=== PATIENT | female | born 1960 | race Caucasian/White ===

== ENCOUNTER 2018-10-01 13:30 | Emergency (ER) | payer MEDICARE, MEDICAID ==
[2018-10-01] MEDS ORDERED: Sodium Chloride 0.9% 1,000 ML IV ONE (13:48)
[2018-10-01 14:30] LABS: % BASOPHILS 0.7 % (0.0-2.0); % EOSINOPHILS 3.4 % (0.0-5.0); % LYMPHOCYTES 12.8 % (20.0-50.0); % MONOCYTES 6.6 % (2.0-10.0); % NEUTROPHILS 76.5 % (40.0-80.0); BASOPHILE ABSOLUTE 0.1 Th/cumm (0-0.2); EOSINOPHILE ABSOLUTE 0.3 Th/cmm (0.1-0.4); HEMATOCRIT 42.3 % (41.0-60); HEMOGLOBIN 13.7 gm/dL (12-16); LYMPHOCYTE ABSOLUTE 1.3 Th/cmm (1.5-3.0); MEAN CELL VOLUME 88.1 fl (81-100); MEAN CORPUSCULAR HEMOGLOBIN 28.6 pg (27.0-31.0); MEAN CORPUSCULAR HGB CONC 32.5 pg (28.0-36.0); MEAN PLATELET VOLUME 10.6 fl; MONOCYTE ABSOLUTE 0.7 Th/cmm (0.3-1.0); NEUTROPHILE ABSOLUTE 7.5 Th/cmm (1.8-8.0); PLATELET COUNT 177 Th/cmm (150-400); RED CELL DISTRIBUTION WIDTH 12.1 % (11.5-20.0); WHITE BLOOD COUNT 9.9 Th/cmm (4.8-10.8)
[2018-10-01 14:45] LABS: INR 0.96 (0.5-1.4)
[2018-10-01 14:58] LABS: ALB/GLOB RATIO 1.2 (1.0-1.8); ANION GAP 14.5 (7.0-16.0); BILIRUBIN,TOTAL 0.3 mg/dL (0.3-1.0); CALCIUM SERUM 9.7 mg/dL (8.6-10.3); CARBON DIOXIDE 26.3 mEq/L (21.0-31.0); CREATININE - SERUM 1.3 mg/dL (0.6-1.2); GFR AFRICAN-AMERICAN 53.7 ml/min (>90); GFR NON AFRICAN-AMERICAN 44.4 ml/min; POTASSIUM SERUM 3.8 mEq/L (3.5-5.1); TOTAL PROTEIN,SERUM 7.4 gm/dL (6.0-8.3)
--- NOTE | 2018-10-01 15:50 | ED Physician Chart ---
ED Chief Complaint/HPI - Patient Information Date Seen:: 10/01/18 Time Seen:: 13:30 Chief Complaint:: Back Pain History of Present Illness:: onset x 3 days of back pain; no report of trauma, H/As, S/T, neck pain, C/P, cough, SOB, Abd. Pain, A/N/V/D/C, fever, chills, or urinary s/s Allergies:: Allergies Allergy/AdvReac Type Severity Reaction Status Date / Time cephalexin Allergy Verified 10/01/18 14:56 Penicillins [PCN] Allergy Verified 10/01/18 14:56 sulfamethoxazole Allergy Verified 10/01/18 14:57 trimethoprim [From Bactrim] Allergy Verified 10/01/18 14:57 Vitals:: Vital Signs - 8 hr 10/01/18 10/01/18 13:32 14:54 Temp 98 F HR 68 65 RR 18 18 BP 119/69 110/43 O2 Sat % 96 95 Historian:: Patient, EMS Review:: Nurse's Note Reviewed, Old Chart Reviewed, EMS run form Reviewed <Julien Raymond - Last Filed: 10/01/18 17:29> - Patient Information Allergies:: Allergies Allergy/AdvReac Type Severity Reaction Status Date / Time cephalexin Allergy Verified 10/01/18 14:56 Penicillins [PCN] Allergy Verified 10/01/18 14:56 sulfamethoxazole Allergy Verified 10/01/18 14:57 trimethoprim [From Bactrim] Allergy Verified 10/01/18 14:57 Vitals:: Vital Signs - 8 hr 10/01/18 10/01/18 10/01/18 13:32 14:54 17:23 Temp 98 F HR 68 65 74 RR 18 18 18 BP 119/69 110/43 114/35 O2 Sat % 96 95 94 <Betty Horowitz - Last Filed: 10/01/18 19:25> ED Review of Systems - Review of Systems General/Constitutional: No fever, No chills, No weight loss, No weakness, No diaphoresis, No edema, No loss of appetite Skin: No skin lesions, No rash, No bruising Head: No headache, No light-headedness Eyes: No loss of vision, No pain, No diplopia ENT: No earache, No nasal drainage, No sore throat, No tinnitus Neck: No neck pain, No swelling, No thyromegaly, No stiffness, No mass noted Cardio Vascular: No chest pain, No palpitations, No PND, No orthopnea, No edema Pulmonary: No SOB, No cough, No sputum, No wheezing GI: No nausea, No vomiting, No diarrhea, No pain, No melena, No hematochezia, No constipation, No hematemesis G/U: No dysuria, No frequency, No hematuria, No nacturia [employer]: No vaginal discharge, No abnormal vaginal bleed, No contraction Musculoskeletal: No bone or joint pain, Back pain, No muscle pain Endocrine: No polyuria, No polydipsia Psychiatric: No prior psych history, No depression, No anxiety, No suicidal ideation, No homicidal ideation, No auditory hallucination, No visual hallucination Hematopoietic: No bruising, No lymphadenopathy Allergic/Immuno: No urticaria, No angioedema Neurological: No syncope, No focal symptoms, No weakness, No paresthesia, No headache, No seizure, No dizziness, No confusion, No vertigo <Julien Raymond - Last Filed: 10/01/18 17:29> ED Past Medical History - Past Medical History Obtainable: Yes Past Medical History: HTN, DM, CAD, Dyslipidemia Family History: Diabetes Melitus, HTN Social History: Non Smoker, No Alcohol, No Drug Use, , Care Facility Surgical History: None Psychiatricy History: None Medication: Reviewed <Julien Raymond - Last Filed: 10/01/18 17:29> ED Physical Exam - Physical Examination General/Constitutional: Awake, Well-developed, well-nourished, Alert, No distress, GCS 15, Non-toxic appearing, Ambulatory Head: Atraumatic Eyes: Lids, conjuctiva normal, PERRL, EOMI Skin: Nl inspection, No rash, No skin lesions, No ecchymosis, Well hydrated, No lymphadenopathy ENMT: External ears, nose nl, TM canals nl, Nasal exam nl, Lips, teeth, gums nl , Oropharynx nl, Tonsils nl Neck: Nontender, Full ROM w/o pain, No JVD, No nuchal rigidity, No bruit, No mass, No stridor Respiratory: Nl effort/Exclusion, Clear to Auscultation, No Wheeze/Rhonchi/Rales Cardio Vascular: RRR, No murmur, gallop, rubs, NL S1 S2, Carotid/Femoral/Distal pulses equal bilaterally GI: No tenderness/rebounding/guarding, No organomegaly, No hernia, Normal BS's, Nondistended, No mass/bruits, No McBurney tenderness : No CVA tenderness Extremities: No tenderness or effusion, Full ROM, normal strength in all extremities, No edema, Normal digits & nails Neuro/Psych: Alert/oriented, DTR's symmetric, Normal sensory exam, Normal motor strength, Judgement/insight normal, Mood normal, Normal gait, No focal deficits Misc: Normal back, No paraspinal tenderness <Julien Raymond - Last Filed: 10/01/18 17:29> ED Labs/Radiology/EKG Results - Lab Results Results: Laboratory Tests 10/01/18 10/01/18 10/01/18 14:05 14:20 14:20 WBC 9.9 RBC 4.80 Hgb 13.7 Hct 42.3 MCV 88.1 MCH 28.6 MCHC Differential 32.5 RDW 12.1 Plt Count 177 MPV 10.6 Neutrophils % 76.5 Lymphocytes % 12.8 L Monocytes % 6.6 Eosinophils % 3.4 Basophils % 0.7 PT INR PTT (Actin FS) Sodium 139 Potassium 3.8 Chloride 102 Carbon Dioxide 26.3 Anion Gap 14.5 BUN 33 H Creatinine 1.3 H Est GFR ( Amer) 53.7 Est GFR (Non-Af Amer) 44.4 BUN/Creatinine Ratio 25.4 Glucose 97 Whole Bld Lactic Acid Calcium 9.7 Total Bilirubin 0.3 AST 19 ALT 14 Alkaline Phosphatase 103 Troponin I Total Protein 7.4 Albumin 4.0 Globulin 3.4 Albumin/Globulin Ratio 1.2 Amylase 54 Lipase 20 Serum , Qual NEGATIVE 10/01/18 10/01/18 10/01/18 14:20 14:20 14:20 WBC RBC Hgb Hct MCV MCH MCHC Differential RDW Plt Count MPV Neutrophils % Lymphocytes % Monocytes % Eosinophils % Basophils % PT 10.0 INR 0.96 PTT (Actin FS) 23.6 L Sodium Potassium Chloride Carbon Dioxide Anion Gap BUN Creatinine Est GFR ( Amer) Est GFR (Non-Af Amer) BUN/Creatinine Ratio Glucose Whole Bld Lactic Acid 0.85 Calcium Total Bilirubin AST ALT Alkaline Phosphatase Troponin I < 0.01 L Total Protein Albumin Globulin Albumin/Globulin Ratio Amylase Lipase Serum , Qual Comments:: Reviewed - Radiology Results Comments:: NAD - EKG Interpretations EKG Time:: 14:27 Rate & Rhythm: 60; NSR Comments:: T-Wave Inversions; non-specific st-t changes <Julien Raymond - Last Filed: 10/01/18 17:29> - Lab Results Results: Laboratory Tests 10/01/18 10/01/18 10/01/18 14:05 14:20 14:20 WBC 9.9 RBC 4.80 Hgb 13.7 Hct 42.3 MCV 88.1 MCH 28.6 MCHC Differential 32.5 RDW 12.1 Plt Count 177 MPV 10.6 Neutrophils % 76.5 Lymphocytes % 12.8 L Monocytes % 6.6 Eosinophils % 3.4 Basophils % 0.7 PT INR PTT (Actin FS) Sodium 139 Potassium 3.8 Chloride 102 Carbon Dioxide 26.3 Anion Gap 14.5 BUN 33 H Creatinine 1.3 H Est GFR ( Amer) 53.7 Est GFR (Non-Af Amer) 44.4 BUN/Creatinine Ratio 25.4 Glucose 97 Whole Bld Lactic Acid Calcium 9.7 Total Bilirubin 0.3 AST 19 ALT 14 Alkaline Phosphatase 103 Troponin I Total Protein 7.4 Albumin 4.0 Globulin 3.4 Albumin/Globulin Ratio 1.2 Amylase 54 Lipase 20 Serum , Qual NEGATIVE 10/01/18 10/01/18 10/01/18 14:20 14:20 14:20 WBC RBC Hgb Hct MCV MCH MCHC Differential RDW Plt Count MPV Neutrophils % Lymphocytes % Monocytes % Eosinophils % Basophils % PT 10.0 INR 0.96 PTT (Actin FS) 23.6 L Sodium Potassium Chloride Carbon Dioxide Anion Gap BUN Creatinine Est GFR ( Amer) Est GFR (Non-Af Amer) BUN/Creatinine Ratio Glucose Whole Bld Lactic Acid 0.85 Calcium Total Bilirubin AST ALT Alkaline Phosphatase Troponin I < 0.01 L Total Protein Albumin Globulin Albumin/Globulin Ratio Amylase Lipase Serum , Qual <Betty Horowitz - Last Filed: 10/01/18 19:25> ED Septic Shock - <6hrs of presentation: Vital Signs: Vital Signs - 8 hr 10/01/18 10/01/18 13:32 14:54 Temp 98 F HR 68 65 RR 18 18 BP 119/69 110/43 O2 Sat % 96 95 <Julien Raymond - Last Filed: 10/01/18 17:29> - . Is Septic Shock (SBP<90, OR Lactate>4 mmol\L) present?: No - <6hrs of presentation: Vital Signs: Vital Signs - 8 hr 10/01/18 10/01/18 10/01/18 13:32 14:54 17:23 Temp 98 F HR 68 65 74 RR 18 18 18 BP 119/69 110/43 114/35 O2 Sat % 96 95 94 <Betty Horowitz - Last Filed: 10/01/18 19:25> ED Reassessment (Disposition) - Reassessment Reassessment Condition:: Improved - Diagnosis Diagnosis:: Dehydration; Pre-Renal Azotemia; Back pain <Julien Raymond - Last Filed: 10/01/18 17:29> - Reassessment Reassessment:: pt has hgb of 8.6 and hct [address] BRODY AND HE APPROVED ADMISSIOM PT SLEEPING MOANING AND GROANING - Patient Disposition Discharge/Transfer:: Acute Care w/in this hosp Admitted to:: Telemetry Condition at Disposition:: Stable <Betty Horowitz - Last Filed: 10/01/18 19:25>
[2018-10-01 18:58] LABS: URINE SOURCE CLEAN C
[2018-10-01 19:01] LABS: URINE BILIRUBIN NEGATIVE (NEGATIVE); URINE BLOOD NEGATIVE (NEGATIVE); URINE GLUCOSE (UA) NEGATIVE (NEGATIVE); URINE KETONE NEGATIVE (NEGATIVE); URINE LEUKOCYTE ESTERASE SMALL (NEGATIVE); URINE NITRATE NEGATIVE (NEGATIVE); URINE PH 5.5 (4.6 - 8.0); URINE PROTEIN NEGATIVE (NEGATIVE); URINE UROBILINOGEN 0.2 E.U./dL (0.2 - 1.0)
[2018-10-01 19:46] LABS: URINE CLARITY CLEAR (CLEAR); URINE COLOR YELLOW; URINE MICROSCOPIC INDICATED? YES
[2018-10-01 19:55] LABS: URINE EPITHELIAL CELLS MODERATE /lpf (FEW); URINE RBC 0-2 /hpf (0-5)
[2018-10-01 19:56] LABS: URINE BACTERIA 2+ /hpf (NONE SEEN)
--- NOTE | 2018-10-02 08:35 | Diagnostic Imaging Report ---
Exam: CT examination abdomen pelvis. HISTORY: Abdominal pain Total DLP equals 954 CTDI equals 20.3 Findings: Multiple contiguous thin section of the abdomen pelvis obtained from lower thorax to pubic symphysis without administration of oral or intravenous contrast material. No prior studies available comparison. The study demonstrates normal aeration of lung parenchyma the bases. Mild left basilar atelectasis is noted. The liver is intact. There is evidence of splenomegaly. The kidneys demonstrate no evidence of obstructive uropathy or nephrolithiasis. There is evidence of prior cholecystectomy. Pancreas poorly seen. There is evidence for large amount of fecal content throughout the colon. There is no evidence of diverticular disease of diverticulitis. Fibroid uterus is appreciated. Ultrasound exam of of pelvis is recommended. Urinary bladder is intact. Bony structures demonstrate no evidence for lytic or blastic changes. IMPRESSION: Basilar atelectasis Status post cholecystectomy Atrophic pancreas Large amount of fecal content. Uterine mass measuring 6 cm diameter, most likely represents fibroid mass, ultrasound examination recommended.
== END 2018-10-01 21:14 ==
LOC: ER 13:30
DX: E86.0 Dehydration (principal); M54.9 Dorsalgia, unspecified; I10 Essential (primary) hypertension; E11.9 Type 2 diabetes mellitus without complications; I25.10 Atherosclerotic heart disease of native coronary artery without angina pectoris; E78.5 Hyperlipidemia, unspecified; Z88.0 Allergy status to penicillin; Z88.1 Allergy status to other antibiotic agents; Z88.2 Allergy status to sulfonamides
CPT/HCPCS: 99284; 96374; 93005; 74176; 84484; 36415; 83605; 85025; 85610; 85730; 87086; 81001; 82150; 84703; 81025; 83690; 80053; 87081; 87040 ×2; J2405; J7030; Z7502

== ENCOUNTER 2019-02-09 20:04 | Inpatient (IN) | payer MEDICARE, MEDICAID ==
--- NOTE | 2019-02-09 20:19 | ED Physician Chart ---
ED Chief Complaint/HPI - Patient Information Date Seen:: 02/09/19 Time Seen:: 20:14 Chief Complaint:: depression History of Present Illness:: this is a 58 yo female residential patient sent to this er for evaluation and treatment of obesity and depression. she hypertensive with diabetes mellitus, cad and lipids problem. Allergies:: Allergies Allergy/AdvReac Type Severity Reaction Status Date / Time cephalexin Allergy Verified 10/01/18 14:56 Penicillins [PCN] Allergy Verified 10/01/18 14:56 sulfamethoxazole Allergy Verified 10/01/18 14:57 trimethoprim [From Bactrim] Allergy Verified 10/01/18 14:57 Historian:: Medical Records Review:: Nurse's Note Reviewed, Old Chart Reviewed, Transfer documents Reviewed ED Review of Systems - Review of Systems General/Constitutional: No fever, No chills, No weight loss, No weakness, No diaphoresis, No edema, No loss of appetite, Other (obesity) Skin: No skin lesions, No rash, No bruising Head: No headache, No light-headedness Eyes: No loss of vision, No pain, No diplopia ENT: No earache, No nasal drainage, No sore throat, No tinnitus Neck: No neck pain, No swelling, No thyromegaly, No stiffness, No mass noted Cardio Vascular: No chest pain, No palpitations, No PND, No orthopnea, No edema Pulmonary: No SOB, No cough, No sputum, No wheezing GI: No nausea, No vomiting, No diarrhea, No pain, No melena, No hematochezia, No constipation, No hematemesis G/U: No dysuria, No frequency, No hematuria Musculoskeletal: No bone or joint pain, No back pain, No muscle pain Endocrine: No polyuria, No polydipsia Psychiatric: No prior psych history, Depression, No anxiety, No suicidal ideation Hematopoietic: No bruising, No lymphadenopathy Allergic/Immuno: No urticaria, No angioedema Neurological: No syncope, No focal symptoms, No weakness, No paresthesia, No headache, No seizure, No dizziness, No confusion, No vertigo ED Past Medical History - Past Medical History Obtainable: Yes Past Medical History: HTN, DM, CAD, Dyslipidemia, Dementia Family History: None Social History: Non Smoker, No Alcohol, No Drug Use, Care Facility Surgical History: other (right leg bka, tonsilecteomy, gallbladder removed, right breast lump removed.) Psychiatricy History: Depression Medication: Reviewed Family Medical History - Family Member Mother History Unknown: Yes ED Physical Exam - Physical Examination General/Constitutional: Awake, Well-developed, well-nourished, Alert, No distress, GCS 15, Non-toxic appearing, Ambulatory Other Gen/Cons comments:: obese Head: Atraumatic Eyes: Lids, conjuctiva normal, PERRL, EOMI Skin: Nl inspection, No rash, No skin lesions, No ecchymosis, Well hydrated, No lymphadenopathy ENMT: External ears, nose nl, Nasal exam nl, Lips, teeth, gums nl Neck: Nontender, Full ROM w/o pain, No JVD, No nuchal rigidity, No bruit, No mass, No stridor Respiratory: Nl effort/Exclusion, Clear to Auscultation, No Wheeze/Rhonchi/Rales Cardio Vascular: RRR, No murmur, gallop, rubs, NL S1 S2 GI: No tenderness/rebounding/guarding, No organomegaly, No hernia, Normal BS's, Nondistended, No mass/bruits, No McBurney tenderness : No CVA tenderness Extremities: No tenderness or effusion, Full ROM, normal strength in all extremities, No edema, Normal digits & nails Other Extremities comments:: the right lower extremity there is a bka that is well healed. Neuro/Psych: Alert/oriented, DTR's symmetric, Normal sensory exam, Normal motor strength, Judgement/insight normal, Mood normal (depressed), Normal gait, No focal deficits Misc: Normal back, No paraspinal tenderness ED Labs/Radiology/EKG Results - Lab Results Results: Abnormal Lab Results 02/09/19 02/09/19 20:30 20:30 WBC 8.3 RBC 4.57 Hgb 13.5 Hct 41.2 MCV 90.1 MCH 29.6 MCHC Differential 32.8 RDW 12.7 Plt Count 208 MPV 10.4 Neutrophils % 76.9 Lymphocytes % 16.1 L Monocytes % 2.5 Eosinophils % 4.5 Basophils % 0.0 Sodium 137 Potassium 3.8 Chloride 100 Carbon Dioxide 27.8 Anion Gap 13.0 BUN 40 H Creatinine 1.3 H Est GFR ( Amer) 53.7 Est GFR (Non-Af Amer) 44.4 BUN/Creatinine Ratio 30.8 Glucose 170 H Calcium 9.1 Total Bilirubin 0.3 AST 12 L ALT 12 Alkaline Phosphatase 85 Total Protein 6.8 Albumin 3.9 Globulin 2.9 Albumin/Globulin Ratio 1.3 - Radiology Results Results: chest x-ray = nad with cm - EKG Interpretations EKG Time:: 20:18 Rate & Rhythm: rate = 72, sinus [place]: left axis ED Assessment - Assessment General Assessment: depressed ED Septic Shock - . Is Septic Shock (SBP<90, OR Lactate>4 mmol\L) present?: No ED Reassessment (Disposition) - Diagnosis Diagnosis:: depression - Patient Disposition Discharge/Transfer:: Acute Care w/in this hosp Admitting Medical Physician:: Ravi Samson Admitting Psych Physician:: Shaheed Cox Condition at Disposition:: Unchanged
[2019-02-09 20:38] LABS: % EOSINOPHILS 4.5 % (0.0-5.0); % LYMPHOCYTES 16.1 % (20.0-50.0); % MONOCYTES 2.5 % (2.0-10.0); % NEUTROPHILS 76.9 % (40.0-80.0); EOSINOPHILE ABSOLUTE 0.4 Th/cmm (0.1-0.4); HEMATOCRIT 41.2 % (41.0-60); HEMOGLOBIN 13.5 gm/dL (12-16); LYMPHOCYTE ABSOLUTE 1.3 Th/cmm (1.5-3.0); MEAN CELL VOLUME 90.1 fl (81-100); MEAN CORPUSCULAR HEMOGLOBIN 29.6 pg (27.0-31.0); MEAN CORPUSCULAR HGB CONC 32.8 pg (28.0-36.0); MONOCYTE ABSOLUTE 0.2 Th/cmm (0.3-1.0); NEUTROPHILE ABSOLUTE 6.4 Th/cmm (1.8-8.0); PLATELET COUNT 208 Th/cmm (150-400); RED BLOOD COUNT 4.57 Mil/cmm (3.80-5.10); RED CELL DISTRIBUTION WIDTH 12.7 % (11.5-20.0); WHITE BLOOD COUNT 8.3 Th/cmm (4.8-10.8)
[2019-02-09 20:55] LABS: ALB/GLOB RATIO 1.3 (1.0-1.8); ALBUMIN 3.9 gm/dL (3.7-5.3); BILIRUBIN,TOTAL 0.3 mg/dL (0.3-1.0); CALCIUM SERUM 9.1 mg/dL (8.6-10.3); CARBON DIOXIDE 27.8 mEq/L (21.0-31.0); CREATININE - SERUM 1.3 mg/dL (0.6-1.2); GFR AFRICAN-AMERICAN 53.7 ml/min (>90); GFR NON AFRICAN-AMERICAN 44.4 ml/min; POTASSIUM SERUM 3.8 mEq/L (3.5-5.1); TOTAL PROTEIN,SERUM 6.8 gm/dL (6.0-8.3)
[2019-02-10 01:21] VITALS: BP 117/65
[2019-02-10] MEDS: INSULIN 70/30 100 UNITS/ML SUBQ SCH ×2 (09:01→21:16)
[2019-02-10] MEDS: Polyvinyl Alcohol Ophth Soln 15 mL Bottle EACH EYE SCH ×3 (10:39→20:57)
[2019-02-10] MEDS: Potassium Chloride 10 mEq ER Tab PO SCH (10:39)
[2019-02-10] MEDS ORDERED: Magnesium Hydroxide (MOM) 30 mL UDC PO PRN (12:15)
[2019-02-10] MEDS: INSULIN LISPRO SLIDING SCALE 100 UNITS/ML UNIT SUBQ SCH ×3 (12:51→20:39)
--- NOTE | 2019-02-10 13:04 | History & Physical ---
ADMIT DATE: 02/10/2019 CHIEF COMPLAINT: Medical evaluation and clearance. HISTORY OF PRESENT ILLNESS: This is a 58-year-old female with history of morbid obesity, renal insufficiency, diabetes, hypertension, peripheral neuropathy, right below-knee amputation, overactive bladder, admitted from nursing facility under the service of Dr. Cox. The patient denies any pain at this time. Denies chest pain, shortness of breath. PAST MEDICAL HISTORY: As mentioned in the history of present illness. PAST SURGICAL HISTORY: Status post gallbladder surgery, right below-knee amputation, right breast lumpectomy, T and A. ALLERGIES: KEFLEX, PENICILLIN, BACTRIM. MEDICATIONS: The patient is on Lantus 70/30 insulin, Zoloft, aspirin, artificial tears, Colace, gabapentin, gemfibrozil, [place], Atarax, insulin sliding scale, Tradjenta, Ativan, Amitiza, potassium ____ and Topamax. FAMILY HISTORY: Noncontributory. SOCIAL HISTORY: The patient is a senior living patient requiring 24-hour total care. Nonsmoker and nondrinker. Unmarried. REVIEW OF SYSTEMS: GENERAL: Complains not feeling well. HEENT: The patient has blurred vision ____. LUNGS: No diagnosis of COPD or asthma. HEART: The patient with hypertension, high cholesterol. ABDOMEN: No nausea, vomiting or pain. GENITOURINARY: The patient denies increased frequency or dysuria. NEUROLOGIC: History of peripheral neuropathy. PSYCHIATRIC: Stable. PHYSICAL EXAMINATION: VITAL SIGNS: Blood pressure 117/64, respirations 18, pulse 71, temperature 98.2. GENERAL: Elderly female, morbidly obese. NECK: Supple, no mass. LUNGS: Equal breath sounds with a few rhonchi. HEART: Regular rate and rhythm without appreciable murmur. ABDOMEN: Soft, globular. EXTREMITIES: Positive excoriation, right below-knee amputation. NEUROLOGIC: Limited. LABORATORY DATA: WBC 8, hemoglobin 13, platelets 208. Sodium 137, potassium 3.8, BUN 40, creatinine 1.3, blood sugar 177. Albumin 3.9. ASSESSMENT AND PLAN: Morbid obesity, renal insufficiency, diabetes, hypertension, hypercholesterolemia, peripheral neuropathy, overactive bladder, right below-knee amputation, history of IBS. Continue the patient on ADA diet and insulin sliding scale. Monitor for any signs of fluid overload. Continue with adequate skin care. We will review the patient's medication. We will make some adjustment. We will continue monitoring the patient closely. [facility]# [id number]
--- NOTE | 2019-02-10 14:07 | Diagnostic Imaging Report ---
Portable chest x-ray HISTORY: Cough Heart size difficult to assess with portable technique taken a very poor inspiration. The heart size appears somewhat generous. No focal pulmonary processes. No hilar or mediastinal abnormalities. IMPRESSION: 1. No acute pulmonary processes 2. Question generous heart size
[2019-02-10] MEDS: Hydrocodone/APAP 5mg/325mg Tab PO PRN (15:40)
[2019-02-10] MEDS: Magnesium Chloride EC 64mg Tab PO SCH (17:59)
--- NOTE | 2019-02-11 03:52 | Psychiatric Evaluation ---
DATE OF SERVICE: 02/09/2019 IDENTIFYING DATA: The patient is a 58-year-old woman, resident of [facility]. Information obtained by directly interviewing the patient as well as reviewing the admission papers. JUSTIFICATION OF HOSPITALIZATION: The patient is admitted here for acute depression. CHIEF COMPLAINT: "I have been feeling depressed since my sister in November." HISTORY OF PRESENT ILLNESS: This is the first psychiatric hospitalization to [facility] for this patient, who is reported to have been feeling depressed since her sister got sick in July. The patient is stating that her sister got better and came to visit her in August, but in November, sister herself got really bad and she from thereon the patient is stating that she has been feeling acutely depressed. She states that her sister was the one that visits her and has been able to provide some comfort. The patient is reporting that she does not have any support now. The patient is blaming herself. The patient's sleep is noted to be poor. Appetite is noted to be fair ____ hospitalization, the patient has been noted to be on Zoloft and gabapentin. PAST PSYCHIATRIC HISTORY: Please refer to the above. MEDICAL HISTORY: Physical examination is requested to be done by Dr. Samson. The patient has been noted to have morbid obesity, diabetes mellitus 2, hypertension, right below-knee amputation, neuropathy, GERD, overactive bladder, hypercholesterolemia, and chronic kidney disease. The patient is reported TO BE ALLERGIC TO BACTRIM AND KEFLEX, PENICILLIN AND SULFA. SOCIAL HISTORY: The patient is a resident of [facility] in [place]. LEGAL PROBLEMS: None at this time. SUBSTANCE ABUSE HISTORY: None. STRENGTH AND ASSETS: The patient is motivated. MENTAL STATUS EXAMINATION: The patient is a 58-year-old, looking her stated age, superficially cooperative. Eye contact is poor. Mood is noted to be depressed. Coping skills are noted to be very poor. Insight and judgment are noted to be limited. The patient is not presenting with any suicidal ideation. No homicidal ideation is noted. Coping skills are noted to be extremely poor. The patient has been having difficult time to cope with the stress. The patient denies any auditory hallucinations, no delusions are noted. The patient is alert and oriented to time, place, person, and situation. DIAGNOSTIC IMPRESSION: AXIS I: Major depressive disorder, first episode and severe. AXIS II: None. AXIS III: As per Dr. Samson. IMMEDIATE TREATMENT PLAN: The patient is going to be observed on inpatient unit, provided with supportive psychotherapy. The patient is going to be restarted with the Zoloft, which is going to be gradually increased. ESTIMATED LENGTH OF STAY: 5-7 days. DISCHARGE CRITERIA: When she no longer is a threat to self or others and be able to cope up with the stress. [facility]# [id number]
[2019-02-11] MEDS: INSULIN LISPRO SLIDING SCALE 100 UNITS/ML UNIT SUBQ SCH ×4 (06:56→21:38)
[2019-02-11 07:06] LABS: A1C 6.9 % (4.8-5.6)
[2019-02-11] MEDS: INSULIN 70/30 100 UNITS/ML SUBQ SCH ×2 (08:31→21:37)
[2019-02-11] MEDS ORDERED: Non-Formulary Item 1 EA (Cranberry Fruit Extract [Cranberry] 425 MG) PO SCH (09:00)
[2019-02-11] MEDS: Potassium Chloride 10 mEq ER Tab PO SCH (09:22)
[2019-02-11] MEDS: Magnesium Chloride EC 64mg Tab PO SCH ×2 (09:24→16:54)
[2019-02-11] MEDS: Polyvinyl Alcohol Ophth Soln 15 mL Bottle EACH EYE SCH ×2 (09:25→21:37)
--- NOTE | 2019-02-11 14:43 | Internal Medicine Prog Note ---
Internal Medicine Subjective - Subjective Patient seen and examined:: with staff, chart reviewed Patient is:: awake, verbal, interactive, in bed Per staff patient has:: no adverse event, no episodes of fall, poor appetite, tolerating meds Internal Medicine Objective - Results Result Diagrams: 02/09/19 20:30 02/09/19 20:30 Recent Labs: Laboratory Last Values WBC 8.3 Th/cmm (4.8-10.8) 02/09/19 20: RBC 4.57 Mil/cmm (3.80-5.10) 02/09/19 20: Hgb 13.5 gm/dL (12-16) 02/09/19 20: Hct 41.2 % (41.0-60) 02/09/19: MCV 90.1 fl (81-100) 02/09/19 20: MCH 29.6 pg (27.0-31.0) 02/09/19: MCHC Differential 32.8 pg (28.0-36.0) 02/09/19: RDW 12.7 % (11.5-20.0) 02/09/19 20: Plt Count 208 Th/cmm (150-400) 02/09/19 20: MPV 10.4 fl 02/09/19 20:30 Neutrophils % 76.9 % (40.0-80.0) 02/09/19 20:30 Lymphocytes % 16.1 % (20.0-50.0) L 02/09/19: Monocytes % 2.5 % (2.0-10.0) 02/09/19: Eosinophils % 4.5 % (0.0-5.0) 02/09/19 20: Basophils % 0.0 % (0.0-2.0) 02/09/19 20:30 Sodium 137 mEq/L (136-145) 02/09/19 20: Potassium 3.8 mEq/L (3.5-5.1) 02/09/19 20: Chloride 100 mEq/L (98-107) 02/09/19 20: Carbon Dioxide 27.8 mEq/L (21.0-31.0) 02/09/19 20: Anion Gap 13.0 (7.0-16.0) 02/09/19 20:30 BUN 40 mg/dL (7-25) H 02/09/19 20:30 Creatinine 1.3 mg/dL (0.6-1.2) H 02/09/19 20:30 Est GFR ( Amer) 53.7 ml/min (>90) 02/09/19 20:30 Est GFR (Non-Af Amer) 44.4 ml/min 02/09/19 20:30 BUN/Creatinine Ratio 30.8 02/09/19 20:30 Glucose 170 mg/dL (70-105) H 02/09/19 20:30 POC Glucose 160 MG/DL (70 - 105) H 02/11/19 06:44 Calcium 9.1 mg/dL (8.6-10.3) 02/09/19 20:30 Total Bilirubin 0.3 mg/dL (0.3-1.0) 02/09/19 20:30 AST 12 U/L (13-39) L 02/09/19 20:30 ALT 12 U/L (7-52) 02/09/19 20:30 Alkaline Phosphatase 85 U/L (34-104) 02/09/19 20:30 Total Protein 6.8 gm/dL (6.0-8.3) 02/09/19 20:30 Albumin 3.9 gm/dL (3.7-5.3) 02/09/19 20:30 Globulin 2.9 gm/dL 02/09/19 20:30 Albumin/Globulin Ratio 1.3 (1.0-1.8) 02/09/19 20:30 TSH 1.49 uIU/ml (0.34-5.60) 02/09/19 20:30 - Physical Exam Vitals and I&O: Vital Signs Temp 98.4 F 02/11/19 14:00 Pulse 71 02/10/19 10:38 Resp 20 02/11/19 08:00 BP 117/65 02/10/19 10:38 Pulse Ox 92 02/09/19 23:00 Intake & Output 02/10/19 02/11/19 02/11/19 18:59 06:59 18:59 Other: # Bowel Movements 1 Stool Characteristics Formed Brown Active Medications: Current Medications Acetaminophen/Hydrocodone Bitart ([place] 5mg/325mg) 1 tab PO Q6H PRN PRN Reason: Pain (Severe) Stop: 04/11/19 08:11 Last Admin: 02/10/19 15:40 Dose: 1 tab Artificial Tears (Artificial Tears Ophth Soln) 1 drop EACH EYE TID [facility] Stop: 04/11/19 08:59 Last Admin: 02/11/19 09:25 Dose: 1 drop Aspirin (Ecotrin) 81 mg PO DAILY [facility] Stop: 04/11/19 08:59 Last Admin: 02/11/19 09:20 Dose: 81 mg Bisacodyl (Dulcolax 10 Mg Supp) 10 mg RC DAILY PRN PRN Reason: Constipation Stop: 04/11/19 12:14 Docusate Sodium (Colace) 250 mg PO BID [facility] Stop: 04/11/19 08:59 Last Admin: 02/11/19 09:22 Dose: 250 mg Gabapentin (Neurontin) 600 mg PO TID [facility] Stop: 04/11/19 20:59 Last Admin: 02/11/19 09:23 Dose: 600 mg Gemfibrozil (Lopid) 600 mg PO BIDAC [facility] Stop: 04/11/19 16:29 Last Admin: 02/11/19 06:55 Dose: 600 mg Hydroxyzine HCl (Atarax) 25 mg PO Q6HR PRN; Protocol PRN Reason: itchiness Stop: 04/11/19 08:11 Insulin Human Isoph/Insulin Regular (Humulin 70/30) 40 unit SUBQ HS [facility] Stop: 04/11/19 20:59 Last Admin: 02/10/19 21:16 Dose: 40 units Insulin Human Isoph/Insulin Regular (Humulin 70/30) 60 unit SUBQ QAM [facility] Stop: 04/11/19 08:59 Last Admin: 02/11/19 08:31 Dose: Not Given Insulin Human Lispro (Humalog Insulin Sliding Scale) 0 units SUBQ ACHS [facility]; Protocol Stop: 04/11/19 11:29 Last Admin: 02/11/19 06:56 Dose: Not Given Lorazepam (Ativan) 0.5 mg PO Q6HR PRN; Protocol PRN Reason: Anxiety Stop: 04/11/19 12:14 Last Admin: 02/10/19 21:17 Dose: 0.5 mg Magnesium Chloride (Slow-Mag) 1 ect PO BID [facility] Stop: 04/11/19 16:59 Last Admin: 02/11/19 09:24 Dose: 1 ect Magnesium Hydroxide (Milk Of Magnesia) 30 ml PO DAILY PRN PRN Reason: Constipation Stop: 04/11/19 12:14 Metoprolol Succinate (Toprol Xl) 25 mg PO DAILY [facility] Stop: 04/11/19 08:59 Last Admin: 02/10/19 10:38 Dose: 25 mg Nitroglycerin (Nitrostat) 0.4 mg SL Q6HR PRN PRN Reason: Chest Pain Stop: 04/11/19 08:11 Potassium Chloride (Klor-Con) 10 meq PO DAILY [facility] Stop: 04/11/19 08:59 Last Admin: 02/11/19 09:22 Dose: 10 meq Topiramate (Topamax) 25 mg PO BID [facility] Stop: 04/11/19 08:59 Last Admin: 02/11/19 09:22 Dose: 25 mg General: alert, obese HEENT: NC/AT, PERRLA Neck: Supple, No JVD Lungs: CTAB Cardiovascular: RRR, Normal S1, Normal S2, without murmur Abdomen: soft, globular, positive bowel sound Extremities: excoriation Neurological: no change - Procedures Procedures: Procedures Procedure Code Date EXCISION OR CORRECTION OF BUNIONETTE 77.54 10/22/97 OTHER LOCAL DESTRUC SKIN 86.3 10/22/97 PART REMOVAL OF METATARSAL 73967 10/22/97 Internal Medicine Assmt/Plan - Assessment Assessment: ASSESSMENT AND PLAN: Morbid obesity, renal insufficiency, diabetes, hypertension, hypercholesterolemia, peripheral neuropathy, overactive bladder, right below-knee amputation, history of IBS. - Plan Plan: PLAN: Continue the patient on ADA diet and insulin sliding scale. Monitor for any signs of fluid overload. Continue with adequate skin care. We will review the patient's medication. We will make some adjustment.
[2019-02-11] MEDS: Hydrocodone/APAP 5mg/325mg Tab PO PRN (16:53)
[2019-02-12] MEDS: Hydrocodone/APAP 5mg/325mg Tab PO PRN ×2 (02:21→12:10)
--- NOTE | 2019-02-12 02:59 | Progress Notes ---
DATE: 02/11/2019 SUBJECTIVE: Staff was spoken to. The patient is interviewed. Mood is noted to be irritable. Affect is constricted. The patient's coping skills are noted to be very poor. The patient is feeling frustrated. The patient is stating that since the sister . She has been having difficult time to cope with the stress. No side effects to the medications are noted at this time. The patient is isolative and withdrawn. ASSESSMENT: The patient is depressed. PLAN: To start the patient with a low dose of the Lexapro and I encouraged the patient to verbalize the concerns rather than to act out. The patient is going to be started with 5 mg of the Lexapro for depression and is going to be gradually increased. JOB# [id number]
[2019-02-12] MEDS: INSULIN LISPRO SLIDING SCALE 100 UNITS/ML UNIT SUBQ SCH ×4 (08:52→22:00)
[2019-02-12] MEDS: Polyvinyl Alcohol Ophth Soln 15 mL Bottle EACH EYE SCH ×3 (08:52→22:00)
[2019-02-12] MEDS: Magnesium Chloride EC 64mg Tab PO SCH ×2 (08:55→17:37)
[2019-02-12] MEDS: Potassium Chloride 10 mEq ER Tab PO SCH (08:56)
[2019-02-12] MEDS: INSULIN 70/30 100 UNITS/ML SUBQ SCH ×2 (08:58→22:00)
--- NOTE | 2019-02-12 11:57 | Internal Medicine Prog Note ---
Internal Medicine Subjective - Subjective Patient seen and examined:: with staff, chart reviewed Patient is:: awake, verbal, interactive, in bed Per staff patient has:: no adverse event, no episodes of fall, poor appetite, tolerating meds Internal Medicine Objective - Results Result Diagrams: 02/09/19 20:30 02/09/19 20:30 Recent Labs: Laboratory Last Values WBC 8.3 Th/cmm (4.8-10.8) 02/09/19 20: RBC 4.57 Mil/cmm (3.80-5.10) 02/09/19 20: Hgb 13.5 gm/dL (12-16) 02/09/19 20: Hct 41.2 % (41.0-60) 02/09/19: MCV 90.1 fl (81-100) 02/09/19 20: MCH 29.6 pg (27.0-31.0) 02/09/19: MCHC Differential 32.8 pg (28.0-36.0) 02/09/19: RDW 12.7 % (11.5-20.0) 02/09/19 20: Plt Count 208 Th/cmm (150-400) 02/09/19 20: MPV 10.4 fl 02/09/19 20:30 Neutrophils % 76.9 % (40.0-80.0) 02/09/19 20:30 Lymphocytes % 16.1 % (20.0-50.0) L 02/09/19: Monocytes % 2.5 % (2.0-10.0) 02/09/19: Eosinophils % 4.5 % (0.0-5.0) 02/09/19 20: Basophils % 0.0 % (0.0-2.0) 02/09/19 20:30 Sodium 137 mEq/L (136-145) 02/09/19 20: Potassium 3.8 mEq/L (3.5-5.1) 02/09/19 20: Chloride 100 mEq/L (98-107) 02/09/19 20: Carbon Dioxide 27.8 mEq/L (21.0-31.0) 02/09/19 20: Anion Gap 13.0 (7.0-16.0) 02/09/19 20:30 BUN 40 mg/dL (7-25) H 02/09/19 20:30 Creatinine 1.3 mg/dL (0.6-1.2) H 02/09/19 20:30 Est GFR ( Amer) 53.7 ml/min (>90) 02/09/19 20:30 Est GFR (Non-Af Amer) 44.4 ml/min 02/09/19 20:30 BUN/Creatinine Ratio 30.8 02/09/19 20:30 Glucose 170 mg/dL (70-105) H 02/09/19 20:30 POC Glucose 167 MG/DL (70 - 105) H 02/12/19 06:22 Calcium 9.1 mg/dL (8.6-10.3) 02/09/19 20:30 Total Bilirubin 0.3 mg/dL (0.3-1.0) 02/09/19 20:30 AST 12 U/L (13-39) L 02/09/19 20:30 ALT 12 U/L (7-52) 02/09/19 20:30 Alkaline Phosphatase 85 U/L (34-104) 02/09/19 20:30 Total Protein 6.8 gm/dL (6.0-8.3) 02/09/19 20:30 Albumin 3.9 gm/dL (3.7-5.3) 02/09/19 20:30 Globulin 2.9 gm/dL 02/09/19 20:30 Albumin/Globulin Ratio 1.3 (1.0-1.8) 02/09/19 20:30 TSH 1.49 uIU/ml (0.34-5.60) 02/09/19 20:30 - Physical Exam Vitals and I&O: Vital Signs Temp 98.4 F 02/11/19 14:43 Pulse 88 02/12/19 08:53 Resp 19 02/11/19 20:00 BP 132/70 02/12/19 08:53 Pulse Ox 96 02/11/19 14:43 Intake & Output 02/11/19 02/12/19 02/12/19 18:59 06:59 18:59 Other: # Bowel Movements 1 Active Medications: Current Medications Acetaminophen/Hydrocodone Bitart ([place] 5mg/325mg) 1 tab PO Q6H PRN PRN Reason: Pain (Severe) Stop: 04/11/19 08:11 Last Admin: 02/12/19 02:21 Dose: 1 tab Artificial Tears (Artificial Tears Ophth Soln) 1 drop EACH EYE TID [facility] Stop: 04/11/19 08:59 Last Admin: 02/12/19 08:52 Dose: 1 drop Aspirin (Ecotrin) 81 mg PO DAILY [facility] Stop: 04/11/19 08:59 Last Admin: 02/12/19 08:55 Dose: 81 mg Bisacodyl (Dulcolax 10 Mg Supp) 10 mg RC DAILY PRN PRN Reason: Constipation Stop: 04/11/19 12:14 Docusate Sodium (Colace) 250 mg PO BID [facility] Stop: 04/11/19 08:59 Last Admin: 02/12/19 08:53 Dose: 250 mg Escitalopram Oxalate (Lexapro) 5 mg PO DAILY [facility]; Protocol Stop: 04/13/19 08:59 Gabapentin (Neurontin) 600 mg PO TID [facility] Stop: 04/13/19 08:59 Last Admin: 02/12/19 08:53 Dose: 600 mg Gemfibrozil (Lopid) 600 mg PO BIDAC [facility] Stop: 04/11/19 16:29 Last Admin: 02/12/19 06:53 Dose: 600 mg Hydroxyzine HCl (Atarax) 25 mg PO Q6HR PRN; Protocol PRN Reason: itchiness Stop: 04/11/19 08:11 Insulin Human Isoph/Insulin Regular (Humulin 70/30) 40 unit SUBQ HS [facility] Stop: 04/11/19 20:59 Last Admin: 02/11/19 21:37 Dose: 40 units Insulin Human Isoph/Insulin Regular (Humulin 70/30) 60 unit SUBQ QAM [facility] Stop: 04/11/19 08:59 Last Admin: 02/12/19 08:58 Dose: Not Given Insulin Human Lispro (Humalog Insulin Sliding Scale) 0 units SUBQ ACHS [facility]; Protocol Stop: 04/11/19 11:29 Last Admin: 02/12/19 08:52 Dose: Not Given Lorazepam (Ativan) 0.5 mg PO Q6HR PRN; Protocol PRN Reason: Anxiety Stop: 04/11/19 12:14 Last Admin: 02/10/19 21:17 Dose: 0.5 mg Magnesium Chloride (Slow-Mag) 1 ect PO BID [facility] Stop: 04/11/19 16:59 Last Admin: 02/12/19 08:55 Dose: 1 ect Magnesium Hydroxide (Milk Of Magnesia) 30 ml PO DAILY PRN PRN Reason: Constipation Stop: 04/11/19 12:14 Metoprolol Succinate (Toprol Xl) 25 mg PO DAILY [facility] Stop: 04/11/19 08:59 Last Admin: 02/12/19 08:53 Dose: 25 mg Nitroglycerin (Nitrostat) 0.4 mg SL Q6HR PRN PRN Reason: Chest Pain Stop: 04/11/19 08:11 Potassium Chloride (Klor-Con) 10 meq PO DAILY [facility] Stop: 04/11/19 08:59 Last Admin: 02/12/19 08:56 Dose: 10 meq Topiramate (Topamax) 25 mg PO BID [facility] Stop: 04/11/19 08:59 Last Admin: 02/12/19 08:56 Dose: 25 mg General: alert, obese HEENT: NC/AT, PERRLA Neck: Supple, No JVD Lungs: CTAB Cardiovascular: RRR, Normal S1, Normal S2, without murmur Abdomen: soft, globular, positive bowel sound Extremities: excoriation Neurological: no change - Procedures Procedures: Procedures Procedure Code Date EXCISION OR CORRECTION OF [place]ION[place] 77.54 10/22/97 OTHER LOCAL DESTRUC SKIN 86.3 10/22/97 PART REMOVAL OF METATARSAL 52385 10/22/97 Internal Medicine Assmt/Plan - Assessment Assessment: ASSESSMENT AND PLAN: Morbid obesity, renal insufficiency, diabetes, hypertension, hypercholesterolemia, peripheral neuropathy, overactive bladder, right below-knee amputation, history of IBS. - Plan Plan: PLAN: Continue the patient on ADA diet and insulin sliding scale. Monitor for any signs of fluid overload. Continue with adequate skin care. We will review the patient's medication. We will make some adjustment.
[2019-02-13] MEDS: Hydrocodone/APAP 5mg/325mg Tab PO PRN ×3 (03:45→20:50)
--- NOTE | 2019-02-13 04:21 | Progress Notes ---
DATE: 02/12/2019 PSYCHIATRIC PROGRESS NOTE SUBJECTIVE: Staff was spoken to. The patient is interviewed. Mood is noted to be depressed. Affect is constricted. The patient's coping skills are noted to be very poor. Sleep and appetite also noted to be very poor. The patient has been feeling frustrated. The patient is stating that she has been having difficult time to deal with the loss of her sister. ASSESSMENT: The patient is still depressed. Coping skills are noted to be still poor. PLAN: To continue the patient with her currently and followup. The patient is currently on Lexapro. The patient is going to be closely monitored with that medication. [facility]# [id number]
[2019-02-13] MEDS: INSULIN LISPRO SLIDING SCALE 100 UNITS/ML UNIT SUBQ SCH ×4 (06:53→20:53)
[2019-02-13] MEDS ORDERED: Escitalopram Oxalate 5 mg Tab PO ONE (08:47)
[2019-02-13] MEDS: INSULIN 70/30 100 UNITS/ML SUBQ SCH ×2 (09:34→20:51)
[2019-02-13] MEDS: Polyvinyl Alcohol Ophth Soln 15 mL Bottle EACH EYE SCH ×3 (09:35→20:49)
[2019-02-13] MEDS: Potassium Chloride 10 mEq ER Tab PO SCH (09:38)
[2019-02-13] MEDS: Magnesium Chloride EC 64mg Tab PO SCH ×2 (09:40→17:27)
--- NOTE | 2019-02-13 12:00 | Internal Medicine Prog Note ---
Internal Medicine Subjective - Subjective Patient seen and examined:: with staff, chart reviewed Patient is:: awake, verbal, interactive, in bed Per staff patient has:: no adverse event, no episodes of fall, poor appetite, tolerating meds Internal Medicine Objective - Results Result Diagrams: 02/09/19 20:30 02/09/19 20:30 Recent Labs: Laboratory Last Values WBC 8.3 Th/cmm (4.8-10.8) 02/09/19 20: RBC 4.57 Mil/cmm (3.80-5.10) 02/09/19 20: Hgb 13.5 gm/dL (12-16) 02/09/19 20: Hct 41.2 % (41.0-60) 02/09/19: MCV 90.1 fl (81-100) 02/09/19 20: MCH 29.6 pg (27.0-31.0) 02/09/19: MCHC Differential 32.8 pg (28.0-36.0) 02/09/19: RDW 12.7 % (11.5-20.0) 02/09/19 20: Plt Count 208 Th/cmm (150-400) 02/09/19 20: MPV 10.4 fl 02/09/19 20:30 Neutrophils % 76.9 % (40.0-80.0) 02/09/19 20:30 Lymphocytes % 16.1 % (20.0-50.0) L 02/09/19: Monocytes % 2.5 % (2.0-10.0) 02/09/19: Eosinophils % 4.5 % (0.0-5.0) 02/09/19 20: Basophils % 0.0 % (0.0-2.0) 02/09/19 20:30 Sodium 137 mEq/L (136-145) 02/09/19 20: Potassium 3.8 mEq/L (3.5-5.1) 02/09/19 20: Chloride 100 mEq/L (98-107) 02/09/19 20: Carbon Dioxide 27.8 mEq/L (21.0-31.0) 02/09/19 20: Anion Gap 13.0 (7.0-16.0) 02/09/19 20:30 BUN 40 mg/dL (7-25) H 02/09/19 20:30 Creatinine 1.3 mg/dL (0.6-1.2) H 02/09/19 20:30 Est GFR ( Amer) 53.7 ml/min (>90) 02/09/19 20:30 Est GFR (Non-Af Amer) 44.4 ml/min 02/09/19 20:30 BUN/Creatinine Ratio 30.8 02/09/19 20:30 Glucose 170 mg/dL (70-105) H 02/09/19 20:30 POC Glucose 198 MG/DL (70 - 105) H 02/13/19 11:27 Calcium 9.1 mg/dL (8.6-10.3) 02/09/19 20:30 Total Bilirubin 0.3 mg/dL (0.3-1.0) 02/09/19 20:30 AST 12 U/L (13-39) L 02/09/19 20:30 ALT 12 U/L (7-52) 02/09/19 20:30 Alkaline Phosphatase 85 U/L (34-104) 02/09/19 20:30 Total Protein 6.8 gm/dL (6.0-8.3) 02/09/19 20:30 Albumin 3.9 gm/dL (3.7-5.3) 02/09/19 20:30 Globulin 2.9 gm/dL 02/09/19 20:30 Albumin/Globulin Ratio 1.3 (1.0-1.8) 02/09/19 20:30 TSH 1.49 uIU/ml (0.34-5.60) 02/09/19 20:30 - Physical Exam Vitals and I&O: Vital Signs Temp 98.6 F 02/13/19 04:51 Pulse 68 02/13/19 09:41 Resp 18 02/13/19 04:51 BP 122/64 02/13/19 09:41 Pulse Ox 94 02/13/19 04:51 Intake & Output 02/12/19 02/13/19 02/13/19 18:59 06:59 18:59 Intake Total 1800 Balance 1800 Intake: Oral 1560 Other 240 Other: # Voids 2 # Bowel Movements 0 Active Medications: Current Medications Acetaminophen/Hydrocodone Bitart ([place] 5mg/325mg) 1 tab PO Q6H PRN PRN Reason: Pain (Severe) Stop: 04/11/19 08:11 Last Admin: 02/13/19 11:35 Dose: 1 tab Artificial Tears (Artificial Tears Ophth Soln) 1 drop EACH EYE TID [facility] Stop: 04/11/19 08:59 Last Admin: 02/13/19 09:35 Dose: 1 drop Aspirin (Ecotrin) 81 mg PO DAILY [facility] Stop: 04/11/19 08:59 Last Admin: 02/13/19 09:35 Dose: 81 mg Bisacodyl (Dulcolax 10 Mg Supp) 10 mg RC DAILY PRN PRN Reason: Constipation Stop: 04/11/19 12:14 Docusate Sodium (Colace) 250 mg PO BID [facility] Stop: 04/11/19 08:59 Last Admin: 02/13/19 09:43 Dose: 250 mg Escitalopram Oxalate (Lexapro) 5 mg PO DAILY [facility]; Protocol Stop: 04/13/19 08:59 Gabapentin (Neurontin) 600 mg PO TID [facility] Stop: 04/13/19 08:59 Last Admin: 02/13/19 09:43 Dose: 600 mg Gemfibrozil (Lopid) 600 mg PO BIDAC [facility] Stop: 04/11/19 16:29 Last Admin: 02/13/19 06:53 Dose: 600 mg Hydroxyzine HCl (Atarax) 25 mg PO Q6HR PRN; Protocol PRN Reason: itchiness Stop: 04/11/19 08:11 Last Admin: 02/13/19 03:45 Dose: 25 mg Insulin Human Isoph/Insulin Regular (Humulin 70/30) 40 unit SUBQ HS [facility] Stop: 04/11/19 20:59 Last Admin: 02/12/19 22:00 Dose: 40 units Insulin Human Isoph/Insulin Regular (Humulin 70/30) 60 unit SUBQ QAM [facility] Stop: 04/11/19 08:59 Last Admin: 02/13/19 09:34 Dose: 60 units Insulin Human Lispro (Humalog Insulin Sliding Scale) 0 units SUBQ ACHS [facility]; Protocol Stop: 04/11/19 11:29 Last Admin: 02/13/19 11:36 Dose: Not Given Lorazepam (Ativan) 0.5 mg PO Q6HR PRN; Protocol PRN Reason: Anxiety Stop: 04/11/19 12:14 Last Admin: 02/12/19 22:02 Dose: 0.5 mg Magnesium Chloride (Slow-Mag) 1 ect PO BID [facility] Stop: 04/11/19 16:59 Last Admin: 02/13/19 09:40 Dose: 1 ect Magnesium Hydroxide (Milk Of Magnesia) 30 ml PO DAILY PRN PRN Reason: Constipation Stop: 04/11/19 12:14 Metoprolol Succinate (Toprol Xl) 25 mg PO DAILY [facility] Stop: 04/11/19 08:59 Last Admin: 02/13/19 09:41 Dose: 25 mg Nitroglycerin (Nitrostat) 0.4 mg SL Q6HR PRN PRN Reason: Chest Pain Stop: 04/11/19 08:11 Potassium Chloride (Klor-Con) 10 meq PO DAILY [facility] Stop: 04/11/19 08:59 Last Admin: 02/13/19 09:38 Dose: 10 meq Topiramate (Topamax) 25 mg PO BID [facility] Stop: 04/11/19 08:59 Last Admin: 02/13/19 09:37 Dose: 25 mg General: alert, obese HEENT: NC/AT, PERRLA Neck: Supple, No JVD Lungs: CTAB Cardiovascular: RRR, Normal S1, Normal S2, without murmur Abdomen: soft, globular, positive bowel sound Extremities: excoriation Neurological: no change - Procedures Procedures: Procedures Procedure Code Date EXCISION OR CORRECTION OF [place] 77.54 10/22/97 OTHER LOCAL DESTRUC SKIN 86.3 10/22/97 PART REMOVAL OF METATARSAL 15013 10/22/97 Internal Medicine Assmt/Plan - Assessment Assessment: ASSESSMENT AND PLAN: Morbid obesity, renal insufficiency, diabetes, hypertension, hypercholesterolemia, peripheral neuropathy, overactive bladder, right below-knee amputation, history of IBS. - Plan Plan: PLAN: Continue the patient on ADA diet and insulin sliding scale. Monitor for any signs of fluid overload. Continue with adequate skin care. We will review the patient's medication. We will make some adjustment.
[2019-02-14] MEDS: Hydrocodone/APAP 5mg/325mg Tab PO PRN ×4 (03:08→23:55)
--- NOTE | 2019-02-14 04:14 | Progress Notes ---
DATE: 02/13/2019 SUBJECTIVE: Staff was spoken to. The patient is interviewed. Mood is noted to be depressed. Affect is constricted. The patient is isolative and withdrawn. The patient is talking about her sister. The patient reports that her niece came by to visit and she is very happy with it. No side effects to the medications are noted. The patient has been started on the Lexapro 5 mg to help her with the depression. Plan to gradually increase that one to 10 mg and follow. [facility]# [id number]
[2019-02-14] MEDS: INSULIN LISPRO SLIDING SCALE 100 UNITS/ML UNIT SUBQ SCH ×4 (06:30→20:18)
[2019-02-14] MEDS: Magnesium Chloride EC 64mg Tab PO SCH ×2 (10:30→18:07)
[2019-02-14] MEDS: Potassium Chloride 10 mEq ER Tab PO SCH (10:33)
[2019-02-14] MEDS: INSULIN 70/30 100 UNITS/ML SUBQ SCH ×2 (10:34→20:16)
[2019-02-14] MEDS: Polyvinyl Alcohol Ophth Soln 15 mL Bottle EACH EYE SCH ×3 (10:34→20:15)
--- NOTE | 2019-02-14 13:00 | Internal Medicine Prog Note ---
Internal Medicine Subjective - Subjective Patient seen and examined:: with staff, chart reviewed Patient is:: awake, verbal, interactive, in bed Per staff patient has:: no adverse event, no episodes of fall, poor appetite, tolerating meds Internal Medicine Objective - Results Result Diagrams: 02/09/19 20:30 02/09/19 20:30 Recent Labs: Laboratory Last Values WBC 8.3 Th/cmm (4.8-10.8) 02/09/19 20: RBC 4.57 Mil/cmm (3.80-5.10) 02/09/19 20: Hgb 13.5 gm/dL (12-16) 02/09/19 20: Hct 41.2 % (41.0-60) 02/09/19: MCV 90.1 fl (81-100) 02/09/19 20: MCH 29.6 pg (27.0-31.0) 02/09/19: MCHC Differential 32.8 pg (28.0-36.0) 02/09/19: RDW 12.7 % (11.5-20.0) 02/09/19 20: Plt Count 208 Th/cmm (150-400) 02/09/19 20: MPV 10.4 fl 02/09/19 20:30 Neutrophils % 76.9 % (40.0-80.0) 02/09/19 20:30 Lymphocytes % 16.1 % (20.0-50.0) L 02/09/19: Monocytes % 2.5 % (2.0-10.0) 02/09/19: Eosinophils % 4.5 % (0.0-5.0) 02/09/19 20: Basophils % 0.0 % (0.0-2.0) 02/09/19 20:30 Sodium 137 mEq/L (136-145) 02/09/19 20: Potassium 3.8 mEq/L (3.5-5.1) 02/09/19 20: Chloride 100 mEq/L (98-107) 02/09/19 20: Carbon Dioxide 27.8 mEq/L (21.0-31.0) 02/09/19 20: Anion Gap 13.0 (7.0-16.0) 02/09/19 20:30 BUN 40 mg/dL (7-25) H 02/09/19 20:30 Creatinine 1.3 mg/dL (0.6-1.2) H 02/09/19 20:30 Est GFR ( Amer) 53.7 ml/min (>90) 02/09/19 20:30 Est GFR (Non-Af Amer) 44.4 ml/min 02/09/19 20:30 BUN/Creatinine Ratio 30.8 02/09/19 20:30 Glucose 170 mg/dL (70-105) H 02/09/19 20:30 POC Glucose 137 MG/DL (70 - 105) H 02/14/19 05:25 Calcium 9.1 mg/dL (8.6-10.3) 02/09/19 20:30 Total Bilirubin 0.3 mg/dL (0.3-1.0) 02/09/19 20:30 AST 12 U/L (13-39) L 02/09/19 20:30 ALT 12 U/L (7-52) 02/09/19 20:30 Alkaline Phosphatase 85 U/L (34-104) 02/09/19 20:30 Total Protein 6.8 gm/dL (6.0-8.3) 02/09/19 20:30 Albumin 3.9 gm/dL (3.7-5.3) 02/09/19 20:30 Globulin 2.9 gm/dL 02/09/19 20:30 Albumin/Globulin Ratio 1.3 (1.0-1.8) 02/09/19 20:30 TSH 1.49 uIU/ml (0.34-5.60) 02/09/19 20:30 - Physical Exam Vitals and I&O: Vital Signs Temp 97.5 F 02/14/19 04:49 Pulse 64 02/14/19 10:31 Resp 19 02/14/19 04:49 BP 122/65 02/14/19 10:31 Pulse Ox 92 02/14/19 04:49 Intake & Output 02/13/19 02/14/19 02/14/19 18:59 06:59 18:59 Intake Total 1500 480 Balance 1500 480 Intake: Oral 1500 480 Other: # Voids 3 2 # Bowel Movements 0 Active Medications: Current Medications Acetaminophen/Hydrocodone Bitart ([place] 5mg/325mg) 1 tab PO Q6H PRN PRN Reason: Pain (Severe) Stop: 04/11/19 08:11 Last Admin: 02/14/19 10:28 Dose: 1 tab Artificial Tears (Artificial Tears Ophth Soln) 1 drop EACH EYE TID [facility] Stop: 04/11/19 08:59 Last Admin: 02/14/19 10:34 Dose: Not Given Aspirin (Ecotrin) 81 mg PO DAILY [facility] Stop: 04/11/19 08:59 Last Admin: 02/14/19 10:29 Dose: 81 mg Bisacodyl (Dulcolax 10 Mg Supp) 10 mg RC DAILY PRN PRN Reason: Constipation Stop: 04/11/19 12:14 Docusate Sodium (Colace) 250 mg PO BID [facility] Stop: 04/11/19 08:59 Last Admin: 02/14/19 10:30 Dose: 250 mg Escitalopram Oxalate (Lexapro) 5 mg PO DAILY [facility]; Protocol Stop: 04/13/19 08:59 Gabapentin (Neurontin) 600 mg PO TID [facility] Stop: 04/13/19 08:59 Last Admin: 02/14/19 10:31 Dose: 600 mg Gemfibrozil (Lopid) 600 mg PO BIDAC [facility] Stop: 04/11/19 16:29 Last Admin: 02/14/19 06:31 Dose: 600 mg Hydroxyzine HCl (Atarax) 25 mg PO Q6HR PRN; Protocol PRN Reason: itchiness Stop: 04/11/19 08:11 Last Admin: 02/14/19 03:08 Dose: 25 mg Insulin Human Isoph/Insulin Regular (Humulin 70/30) 40 unit SUBQ HS [facility] Stop: 04/11/19 20:59 Last Admin: 02/13/19 20:51 Dose: 40 units Insulin Human Isoph/Insulin Regular (Humulin 70/30) 60 unit SUBQ QAM [facility] Stop: 04/11/19 08:59 Last Admin: 02/14/19 10:34 Dose: Not Given Insulin Human Lispro (Humalog Insulin Sliding Scale) 0 units SUBQ ACHS [facility]; Protocol Stop: 04/11/19 11:29 Last Admin: 02/14/19 11:30 Dose: 4 units Lorazepam (Ativan) 0.5 mg PO Q6HR PRN; Protocol PRN Reason: Anxiety Stop: 04/11/19 12:14 Last Admin: 02/13/19 20:50 Dose: 0.5 mg Magnesium Chloride (Slow-Mag) 1 ect PO BID [facility] Stop: 04/11/19 16:59 Last Admin: 02/14/19 10:30 Dose: 1 ect Magnesium Hydroxide (Milk Of Magnesia) 30 ml PO DAILY PRN PRN Reason: Constipation Stop: 04/11/19 12:14 Metoprolol Succinate (Toprol Xl) 25 mg PO DAILY [facility] Stop: 04/11/19 08:59 Last Admin: 02/14/19 10:31 Dose: 25 mg Nitroglycerin (Nitrostat) 0.4 mg SL Q6HR PRN PRN Reason: Chest Pain Stop: 04/11/19 08:11 Potassium Chloride (Klor-Con) 10 meq PO DAILY [facility] Stop: 04/11/19 08:59 Last Admin: 02/14/19 10:33 Dose: 10 meq Topiramate (Topamax) 25 mg PO BID [facility] Stop: 04/11/19 08:59 Last Admin: 02/14/19 10:29 Dose: 25 mg General: alert, obese HEENT: NC/AT, PERRLA Neck: Supple, No JVD Lungs: CTAB Cardiovascular: RRR, Normal S1, Normal S2, without murmur Abdomen: soft, globular, positive bowel sound Extremities: excoriation Neurological: no change - Procedures Procedures: Procedures Procedure Code Date EXCISION OR CORRECTION OF BUNIONETTE 77.54 10/22/97 OTHER LOCAL DESTRUC SKIN 86.3 10/22/97 PART REMOVAL OF METATARSAL 54392 10/22/97 Internal Medicine Assmt/Plan - Assessment Assessment: ASSESSMENT AND PLAN: Morbid obesity, renal insufficiency, diabetes, hypertension, hypercholesterolemia, peripheral neuropathy, overactive bladder, right below-knee amputation, history of IBS. - Plan Plan: PLAN: Continue the patient on ADA diet and insulin sliding scale. Monitor for any signs of fluid overload. Continue with adequate skin care. We will review the patient's medication. We will make some adjustment. Nutritional Asmnt/Malnutr-PDOC - Dietary Evaluation Malnutrition Findings (Please click <Entered> for more info): Nutritional Asmnt/Malnutrition Start: 02/13/19 14: 00 Text: Status: Complete Freq: Protocol: Document 02/13/19 14:01 FEDERICA (Rec: 02/13/19 14:06 FEDERICA [email or web address]) Nutritional Asmnt/Malnutrition Patient General Information Nutritional Screening Moderate Risk Diagnosis Psychosis Pertinent Medical Hx/Surgical Hx Morbid obesity, renal insufficiency, DM, HTN, Peripheral neuropathy, RT below-knee amputation, overactive bladder, status post gallbladder surgery, RT breast lumpectomy, T and A Subjective Information Pt was downgraded from moderate to low risk d/t well tolerance to meal/diet order and meeting nutritional needs. Pt is a 58-year-old female from nursing facility admitted on 02/09 d/t psychosis. Per Meal/Nutrition Activity Record , Pt PO intake 100% meals since admission. HT: 56 WT: 316 LB (143.64 kg) ADJ BW: 93.04 kg BMI: 51.0 (Obese III) GI: WNL, Soft, Non-Tender, Round BM: 02/12 x1 I/O: 1800/Not Noted Skin: WNL, Intact Manish: 15 Diet Order: CCHO, VINNY Estimated Energy Needs: (Obese III, ADJ BW) 2062-6934 kcals (20-25 kcals/ kg) 74-84 g Pro (0.8-0.9g/kg) 6164-3227 ml (25-30 ml/kg) Pt is eating 100% of meals per Meal/Nutrition Activity Record. Dietary is currently providing an estimated 2098 kcals and 120 gm Pro to meet 100% kcal and 100+% Pro needs. Current Diet Order/ Nutrition Support CCHO, VINNY Pertinent Medications Dulcolax (PRN), Colace, INS-SS , Slow-Mag, MOM (PRN), Klor- Con Pertinent Labs 02/13: POC Glucose (last 24 hours) 167, 219, 243, 238, 189 , 198 Nutritional Hx/Data Height 1.68 m Height (Calculated Centimeters) 167.6 Current Weight (lbs) 143.335 kg Weight (Calculated Kilograms) 143.3 Weight (Calculated Grams) 403615.2 [place]ar Body Weight 59.3 kg % Damar Body Weight 242 Body Mass Index (BMI) 51.0 Weight Status Morbidly Obese GI Symptoms GI Symptoms None Last BM 02/12 x1 Skin Integrity/Comment: WNL, Intact Manish: 15 Current %PO Good (75-100%) Estimated Nutritional Goals BEE in Kcals: Adj wt of IBW Calories/Kcals/Kg 20-25 Kcals Calculated 2016-7643 Protein: Adj wt of IBW Protein g/k.8-0.9g Protein Calculated 74-84 Fluid: ml 2135-7970 ml (25-30 ml/kg) Nutritional Problem 2. Problem Problem Obesity Etiology related to possible excessive energy intake Signs/Symptoms: aeb BMI 51.0, 242% IBW 1. Problem Problem Altered nutrition related labs Etiology r/t endocrine dysfunction and Hx of DM Signs/Symptoms: aeb POC Glucose (last 24 hours ) 167, 219, 243, 238, 189, 198 on 02/13 Intervention/Recommendation Comments 1.Continue with CCHO, VINNY diet as ordered. 2. Continue with anti- hyperglycemic medications for glucose control per MD order. Expected Outcomes/Goals Expected Outcomes/Goals 1.PO intake to continue to meet 75% of nutritional needs. 2.Monitor PO intake, wt, skin integrity, and nutrition related labs to trend WNL. 3.F/U as low risk in 7 days,
--- NOTE | 2019-02-14 16:01 | Progress Notes ---
DATE: 02/14/2019 Staff was spoken to. The patient is interviewed. Mood is noted to be irritable. Affect is constricted. The patient's insight and judgment are noted to be still impaired. The patient is isolative and withdrawn. Coping skills are noted to be poor. The patient is feeling still depressed. The patient is currently on Lexapro. PLAN: To continue the patient with the supportive therapy and followup. [facility]# [id number]
[2019-02-14] MEDS: Escitalopram Oxalate 5 mg Tab PO SCH (18:12)
[2019-02-15] MEDS: INSULIN LISPRO SLIDING SCALE 100 UNITS/ML UNIT SUBQ SCH ×4 (06:30→21:27)
[2019-02-15] MEDS: Potassium Chloride 10 mEq ER Tab PO SCH (09:00)
[2019-02-15] MEDS: Escitalopram Oxalate 5 mg Tab PO SCH (09:00)
[2019-02-15] MEDS: Magnesium Chloride EC 64mg Tab PO SCH ×2 (09:00→17:49)
[2019-02-15] MEDS: INSULIN 70/30 100 UNITS/ML SUBQ SCH ×2 (09:00→21:34)
[2019-02-15] MEDS: Polyvinyl Alcohol Ophth Soln 15 mL Bottle EACH EYE SCH ×3 (10:22→21:25)
--- NOTE | 2019-02-15 12:37 | Internal Medicine Prog Note ---
Internal Medicine Subjective - Subjective Patient seen and examined:: with staff, chart reviewed Patient is:: awake, verbal, interactive, in bed Per staff patient has:: no adverse event, no episodes of fall, poor appetite, tolerating meds Internal Medicine Objective - Results Result Diagrams: 02/09/19 20:30 02/09/19 20:30 Recent Labs: Laboratory Last Values WBC 8.3 Th/cmm (4.8-10.8) 02/09/19 20: RBC 4.57 Mil/cmm (3.80-5.10) 02/09/19 20: Hgb 13.5 gm/dL (12-16) 02/09/19 20: Hct 41.2 % (41.0-60) 02/09/19: MCV 90.1 fl (81-100) 02/09/19 20: MCH 29.6 pg (27.0-31.0) 02/09/19: MCHC Differential 32.8 pg (28.0-36.0) 02/09/19: RDW 12.7 % (11.5-20.0) 02/09/19 20: Plt Count 208 Th/cmm (150-400) 02/09/19 20: MPV 10.4 fl 02/09/19 20:30 Neutrophils % 76.9 % (40.0-80.0) 02/09/19 20:30 Lymphocytes % 16.1 % (20.0-50.0) L 02/09/19: Monocytes % 2.5 % (2.0-10.0) 02/09/19: Eosinophils % 4.5 % (0.0-5.0) 02/09/19 20: Basophils % 0.0 % (0.0-2.0) 02/09/19 20:30 Sodium 137 mEq/L (136-145) 02/09/19 20: Potassium 3.8 mEq/L (3.5-5.1) 02/09/19 20: Chloride 100 mEq/L (98-107) 02/09/19 20: Carbon Dioxide 27.8 mEq/L (21.0-31.0) 02/09/19 20: Anion Gap 13.0 (7.0-16.0) 02/09/19 20:30 BUN 40 mg/dL (7-25) H 02/09/19 20:30 Creatinine 1.3 mg/dL (0.6-1.2) H 02/09/19 20:30 Est GFR ( Amer) 53.7 ml/min (>90) 02/09/19 20:30 Est GFR (Non-Af Amer) 44.4 ml/min 02/09/19 20:30 BUN/Creatinine Ratio 30.8 02/09/19 20:30 Glucose 170 mg/dL (70-105) H 02/09/19 20:30 POC Glucose 128 MG/DL (70 - 105) H 02/15/19 06:18 Calcium 9.1 mg/dL (8.6-10.3) 02/09/19 20:30 Total Bilirubin 0.3 mg/dL (0.3-1.0) 02/09/19 20:30 AST 12 U/L (13-39) L 02/09/19 20:30 ALT 12 U/L (7-52) 02/09/19 20:30 Alkaline Phosphatase 85 U/L (34-104) 02/09/19 20:30 Total Protein 6.8 gm/dL (6.0-8.3) 02/09/19 20:30 Albumin 3.9 gm/dL (3.7-5.3) 02/09/19 20:30 Globulin 2.9 gm/dL 02/09/19 20:30 Albumin/Globulin Ratio 1.3 (1.0-1.8) 02/09/19 20:30 TSH 1.49 uIU/ml (0.34-5.60) 02/09/19 20:30 - Physical Exam Vitals and I&O: Vital Signs Temp 97.9 F 02/14/19 14:00 Pulse 66 02/15/19 10:25 Resp 18 02/14/19 14:00 BP 129/72 02/15/19 10:25 Pulse Ox 95 02/14/19 14:00 Intake & Output 02/14/19 02/15/19 02/15/19 18:59 06:59 18:59 Intake Total 1600 Balance 1600 Intake: Oral 1600 Other: # Voids 3 # Bowel Movements 0 Active Medications: Current Medications Acetaminophen/Hydrocodone Bitart ([place] 5mg/325mg) 1 tab PO Q6H PRN PRN Reason: Pain (Severe) Stop: 04/11/19 08:11 Last Admin: 02/14/19 23:55 Dose: 1 tab Artificial Tears (Artificial Tears Ophth Soln) 1 drop EACH EYE TID [facility] Stop: 04/11/19 08:59 Last Admin: 02/15/19 10:22 Dose: Not Given Aspirin (Ecotrin) 81 mg PO DAILY [facility] Stop: 04/11/19 08:59 Last Admin: 02/15/19 09:00 Dose: 81 mg Bisacodyl (Dulcolax 10 Mg Supp) 10 mg RC DAILY PRN PRN Reason: Constipation Stop: 04/11/19 12:14 Docusate Sodium (Colace) 250 mg PO BID [facility] Stop: 04/11/19 08:59 Last Admin: 02/15/19 09:00 Dose: 250 mg Escitalopram Oxalate (Lexapro) 5 mg PO DAILY [facility]; Protocol Stop: 04/15/19 16:59 Last Admin: 02/15/19 09:00 Dose: 5 mg Gabapentin (Neurontin) 600 mg PO TID [facility] Stop: 04/13/19 08:59 Last Admin: 02/15/19 09:00 Dose: 600 mg Gemfibrozil (Lopid) 600 mg PO BIDAC [facility] Stop: 04/11/19 16:29 Last Admin: 02/15/19 06:30 Dose: 600 mg Hydroxyzine HCl (Atarax) 25 mg PO Q6HR PRN; Protocol PRN Reason: itchiness Stop: 04/11/19 08:11 Last Admin: 02/14/19 03:08 Dose: 25 mg Insulin Human Isoph/Insulin Regular (Humulin 70/30) 40 unit SUBQ HS [facility] Stop: 04/11/19 20:59 Last Admin: 02/14/19 20:16 Dose: 40 units Insulin Human Isoph/Insulin Regular (Humulin 70/30) 60 unit SUBQ QAM [facility] Stop: 04/11/19 08:59 Last Admin: 02/15/19 09:00 Dose: Not Given Insulin Human Lispro (Humalog Insulin Sliding Scale) 0 units SUBQ ACHS [facility]; Protocol Stop: 04/11/19 11:29 Last Admin: 02/15/19 06:30 Dose: Not Given Lorazepam (Ativan) 0.5 mg PO Q6HR PRN; Protocol PRN Reason: Anxiety Stop: 04/11/19 12:14 Last Admin: 02/14/19 20:16 Dose: 0.5 mg Magnesium Chloride (Slow-Mag) 1 ect PO BID [facility] Stop: 04/11/19 16:59 Last Admin: 02/15/19 09:00 Dose: 1 ect Magnesium Hydroxide (Milk Of Magnesia) 30 ml PO DAILY PRN PRN Reason: Constipation Stop: 04/11/19 12:14 Metoprolol Succinate (Toprol Xl) 25 mg PO DAILY [facility] Stop: 04/11/19 08:59 Last Admin: 02/15/19 10:25 Dose: 25 mg Nitroglycerin (Nitrostat) 0.4 mg SL Q6HR PRN PRN Reason: Chest Pain Stop: 04/11/19 08:11 Potassium Chloride (Klor-Con) 10 meq PO DAILY [facility] Stop: 04/11/19 08:59 Last Admin: 02/15/19 09:00 Dose: 10 meq Topiramate (Topamax) 25 mg PO BID [facility] Stop: 04/11/19 08:59 Last Admin: 02/15/19 09:00 Dose: 25 mg General: alert, obese HEENT: NC/AT, PERRLA Neck: Supple, No JVD Lungs: CTAB Cardiovascular: RRR, Normal S1, Normal S2, without murmur Abdomen: soft, globular, positive bowel sound Extremities: excoriation Neurological: no change - Procedures Procedures: Procedures Procedure Code Date EXCISION OR CORRECTION OF [place] 77.54 10/22/97 OTHER LOCAL DESTRUC SKIN 86.3 10/22/97 PART REMOVAL OF METATARSAL 48736 10/22/97 Internal Medicine Assmt/Plan - Assessment Assessment: ASSESSMENT AND PLAN: Morbid obesity, renal insufficiency, diabetes, hypertension, hypercholesterolemia, peripheral neuropathy, overactive bladder, right below-knee amputation, history of IBS. - Plan Plan: PLAN: Continue the patient on ADA diet and insulin sliding scale. Monitor for any signs of fluid overload. Continue with adequate skin care. We will review the patient's medication. We will make some adjustment. Nutritional Asmnt/Malnutr-PDOC - Dietary Evaluation Malnutrition Findings (Please click <Entered> for more info): Nutritional Asmnt/Malnutrition Start: 02/13/19 14: 00 Text: Status: Complete Freq: Protocol: Document 02/13/19 14:01 FEDERICA (Rec: 02/13/19 14:06 FEDERICA [email or web address]) Nutritional Asmnt/Malnutrition Patient General Information Nutritional Screening Moderate Risk Diagnosis Psychosis Pertinent Medical Hx/Surgical Hx Morbid obesity, renal insufficiency, DM, HTN, Peripheral neuropathy, RT below-knee amputation, overactive bladder, status post gallbladder surgery, RT breast lumpectomy, T and A Subjective Information Pt was downgraded from moderate to low risk d/t well tolerance to meal/diet order and meeting nutritional needs. Pt is a 58-year-old female from nursing facility admitted on 02/09 d/t psychosis. Per Meal/Nutrition Activity Record , Pt PO intake 100% meals since admission. HT: 56 WT: 316 LB (143.64 kg) ADJ BW: 93.04 kg BMI: 51.0 (Obese III) GI: WNL, Soft, Non-Tender, Round BM: 02/12 x1 I/O: 1800/Not Noted Skin: WNL, Intact Manish: 15 Diet Order: CCHO, VINNY Estimated Energy Needs: (Obese III, ADJ BW) 6341-2204 kcals (20-25 kcals/ kg) 74-84 g Pro (0.8-0.9g/kg) 2841-2300 ml (25-30 ml/kg) Pt is eating 100% of meals per Meal/Nutrition Activity Record. Dietary is currently providing an estimated 2098 kcals and 120 gm Pro to meet 100% kcal and 100+% Pro needs. Current Diet Order/ Nutrition Support CCHO, VINNY Pertinent Medications Dulcolax (PRN), Colace, INS-SS , Slow-Mag, MOM (PRN), Klor- Con Pertinent Labs 02/13: POC Glucose (last 24 hours) 167, 219, 243, 238, 189 , 198 Nutritional Hx/Data Height 1.68 m Height (Calculated Centimeters) 167.6 Current Weight (lbs) 143.335 kg Weight (Calculated Kilograms) 143.3 Weight (Calculated Grams) 514584.2 [place] Body Weight 59.3 kg % [place] Body Weight 242 Body Mass Index (BMI) 51.0 Weight Status Morbidly Obese GI Symptoms GI Symptoms None Last BM 02/12 x1 Skin Integrity/Comment: WNL, Intact Manish: 15 Current %PO Good (75-100%) Estimated Nutritional Goals BEE in Kcals: Adj wt of IBW Calories/Kcals/Kg 20-25 Kcals Calculated 9194-1878 Protein: Adj wt of IBW Protein g/k.8-0.9g Protein Calculated 74-84 Fluid: ml 4670-0588 ml (25-30 ml/kg) Nutritional Problem 2. Problem Problem Obesity Etiology related to possible excessive energy intake Signs/Symptoms: aeb BMI 51.0, 242% IBW 1. Problem Problem Altered nutrition related labs Etiology r/t endocrine dysfunction and Hx of DM Signs/Symptoms: aeb POC Glucose (last 24 hours ) 167, 219, 243, 238, 189, 198 on 02/13 Intervention/Recommendation Comments 1.Continue with CCHO, VINNY diet as ordered. 2. Continue with anti- hyperglycemic medications for glucose control per MD order. Expected Outcomes/Goals Expected Outcomes/Goals 1.PO intake to continue to meet 75% of nutritional needs. 2.Monitor PO intake, wt, skin integrity, and nutrition related labs to trend WNL. 3.F/U as low risk in 7 days,
[2019-02-15] MEDS: Hydrocodone/APAP 5mg/325mg Tab PO PRN (13:32)
--- NOTE | 2019-02-15 17:35 | Progress Notes ---
DATE: 02/15/2019 PSYCHIATRIC PROGRESS NOTE SUBJECTIVE: Staff was spoken to. The patient is interviewed. Mood is noted to be depressed. Affect is constricted. The patient's insight and judgment at this time are noted to be still impaired. The patient's coping skills at this time are noted to be very poor. The patient has been having difficult time to cope with the stress. The patient is currently on Lexapro and is able to tolerate the medication. ASSESSMENT: The patient is still depressed. PLAN: To continue the patient with the supportive therapy and followup. JOB# [id number]
[2019-02-16] MEDS: Hydrocodone/APAP 5mg/325mg Tab PO PRN ×2 (00:12→17:13)
[2019-02-16] MEDS: INSULIN LISPRO SLIDING SCALE 100 UNITS/ML UNIT SUBQ SCH ×4 (06:54→20:35)
[2019-02-16] MEDS: Polyvinyl Alcohol Ophth Soln 15 mL Bottle EACH EYE SCH ×4 (08:44→20:27)
[2019-02-16] MEDS: Escitalopram Oxalate 5 mg Tab PO SCH (08:46)
[2019-02-16] MEDS: Potassium Chloride 10 mEq ER Tab PO SCH (08:49)
[2019-02-16] MEDS: Magnesium Chloride EC 64mg Tab PO SCH ×2 (08:50→16:35)
[2019-02-16] MEDS: INSULIN 70/30 100 UNITS/ML SUBQ SCH ×2 (09:00→20:34)
--- NOTE | 2019-02-16 12:30 | Internal Medicine Prog Note ---
Internal Medicine Subjective - Subjective Patient seen and examined:: with staff, chart reviewed Patient is:: awake, verbal, interactive, in bed Per staff patient has:: no adverse event, no episodes of fall, poor appetite, tolerating meds Internal Medicine Objective - Results Result Diagrams: 02/09/19 20:30 02/09/19 20:30 Recent Labs: Laboratory Last Values WBC 8.3 Th/cmm (4.8-10.8) 02/09/19 20: RBC 4.57 Mil/cmm (3.80-5.10) 02/09/19 20: Hgb 13.5 gm/dL (12-16) 02/09/19 20: Hct 41.2 % (41.0-60) 02/09/19: MCV 90.1 fl (81-100) 02/09/19 20: MCH 29.6 pg (27.0-31.0) 02/09/19: MCHC Differential 32.8 pg (28.0-36.0) 02/09/19: RDW 12.7 % (11.5-20.0) 02/09/19 20: Plt Count 208 Th/cmm (150-400) 02/09/19 20: MPV 10.4 fl 02/09/19 20:30 Neutrophils % 76.9 % (40.0-80.0) 02/09/19 20:30 Lymphocytes % 16.1 % (20.0-50.0) L 02/09/19: Monocytes % 2.5 % (2.0-10.0) 02/09/19: Eosinophils % 4.5 % (0.0-5.0) 02/09/19 20: Basophils % 0.0 % (0.0-2.0) 02/09/19 20:30 Sodium 137 mEq/L (136-145) 02/09/19 20: Potassium 3.8 mEq/L (3.5-5.1) 02/09/19 20: Chloride 100 mEq/L (98-107) 02/09/19 20: Carbon Dioxide 27.8 mEq/L (21.0-31.0) 02/09/19 20: Anion Gap 13.0 (7.0-16.0) 02/09/19 20:30 BUN 40 mg/dL (7-25) H 02/09/19 20:30 Creatinine 1.3 mg/dL (0.6-1.2) H 02/09/19 20:30 Est GFR ( Amer) 53.7 ml/min (>90) 02/09/19 20:30 Est GFR (Non-Af Amer) 44.4 ml/min 02/09/19 20:30 BUN/Creatinine Ratio 30.8 02/09/19 20:30 Glucose 170 mg/dL (70-105) H 02/09/19 20:30 POC Glucose 187 MG/DL (70 - 105) H 02/16/19 09:14 Calcium 9.1 mg/dL (8.6-10.3) 02/09/19 20:30 Total Bilirubin 0.3 mg/dL (0.3-1.0) 02/09/19 20:30 AST 12 U/L (13-39) L 02/09/19 20:30 ALT 12 U/L (7-52) 02/09/19 20:30 Alkaline Phosphatase 85 U/L (34-104) 02/09/19 20:30 Total Protein 6.8 gm/dL (6.0-8.3) 02/09/19 20:30 Albumin 3.9 gm/dL (3.7-5.3) 02/09/19 20:30 Globulin 2.9 gm/dL 02/09/19 20:30 Albumin/Globulin Ratio 1.3 (1.0-1.8) 02/09/19 20:30 TSH 1.49 uIU/ml (0.34-5.60) 02/09/19 20:30 - Physical Exam Vitals and I&O: Vital Signs Temp 97.3 F 02/16/19 06:11 Pulse 58 02/16/19 06:11 Resp 18 02/16/19 06:11 BP 110/55 02/16/19 06:11 Pulse Ox 96 02/16/19 06:11 Intake & Output 02/15/19 02/16/19 02/16/19 18:59 06:59 18:59 Intake Total 240 Balance 240 Intake: Oral 240 Other: # Voids 2 Active Medications: Current Medications Acetaminophen/Hydrocodone Bitart ([place] 5mg/325mg) 1 tab PO Q6H PRN PRN Reason: Pain (Severe) Stop: 04/11/19 08:11 Last Admin: 02/16/19 00:12 Dose: 1 tab Artificial Tears (Artificial Tears Ophth Soln) 1 drop EACH EYE TID [facility] Stop: 04/11/19 08:59 Last Admin: 02/16/19 08:44 Dose: Not Given Aspirin (Ecotrin) 81 mg PO DAILY [facility] Stop: 04/11/19 08:59 Last Admin: 02/16/19 08:45 Dose: 81 mg Bisacodyl (Dulcolax 10 Mg Supp) 10 mg RC DAILY PRN PRN Reason: Constipation Stop: 04/11/19 12:14 Docusate Sodium (Colace) 250 mg PO BID [facility] Stop: 04/11/19 08:59 Last Admin: 02/16/19 08:44 Dose: 250 mg Escitalopram Oxalate (Lexapro) 5 mg PO DAILY [facility]; Protocol Stop: 04/15/19 16:59 Last Admin: 02/16/19 08:46 Dose: 5 mg Gabapentin (Neurontin) 600 mg PO TID [facility] Stop: 04/13/19 08:59 Last Admin: 02/16/19 08:46 Dose: 600 mg Gemfibrozil (Lopid) 600 mg PO BIDAC [facility] Stop: 04/11/19 16:29 Last Admin: 02/16/19 07:04 Dose: 600 mg Hydroxyzine HCl (Atarax) 25 mg PO Q6HR PRN; Protocol PRN Reason: itchiness Stop: 04/11/19 08:11 Last Admin: 02/14/19 03:08 Dose: 25 mg Insulin Human Isoph/Insulin Regular (Humulin 70/30) 40 unit SUBQ HS [facility] Stop: 04/11/19 20:59 Last Admin: 02/15/19 21:34 Dose: 40 units Insulin Human Isoph/Insulin Regular (Humulin 70/30) 60 unit SUBQ QAM [facility] Stop: 04/11/19 08:59 Last Admin: 02/16/19 09:00 Dose: 60 units Insulin Human Lispro (Humalog Insulin Sliding Scale) 0 units SUBQ ACHS [facility]; Protocol Stop: 04/11/19 11:29 Last Admin: 02/16/19 12:23 Dose: Not Given Lorazepam (Ativan) 0.5 mg PO Q6HR PRN; Protocol PRN Reason: Anxiety Stop: 04/11/19 12:14 Last Admin: 02/15/19 21:25 Dose: 0.5 mg Magnesium Chloride (Slow-Mag) 1 ect PO BID [facility] Stop: 04/11/19 16:59 Last Admin: 02/16/19 08:50 Dose: 1 ect Magnesium Hydroxide (Milk Of Magnesia) 30 ml PO DAILY PRN PRN Reason: Constipation Stop: 04/11/19 12:14 Metoprolol Succinate (Toprol Xl) 25 mg PO DAILY [facility] Stop: 04/11/19 08:59 Last Admin: 02/16/19 08:49 Dose: Not Given Nitroglycerin (Nitrostat) 0.4 mg SL Q6HR PRN PRN Reason: Chest Pain Stop: 04/11/19 08:11 Potassium Chloride (Klor-Con) 10 meq PO DAILY [facility] Stop: 04/11/19 08:59 Last Admin: 02/16/19 08:49 Dose: 10 meq Topiramate (Topamax) 25 mg PO BID [facility] Stop: 04/11/19 08:59 Last Admin: 02/16/19 08:48 Dose: Not Given General: alert, obese HEENT: NC/AT, PERRLA Neck: Supple, No JVD Lungs: CTAB Cardiovascular: RRR, Normal S1, Normal S2, without murmur Abdomen: soft, globular, positive bowel sound Extremities: excoriation Neurological: no change - Procedures Procedures: Procedures Procedure Code Date EXCISION OR CORRECTION OF BUNIONETTE 77.54 10/22/97 OTHER LOCAL DESTRUC SKIN 86.3 10/22/97 PART REMOVAL OF METATARSAL 72995 10/22/97 Internal Medicine Assmt/Plan - Assessment Assessment: ASSESSMENT AND PLAN: Morbid obesity, renal insufficiency, diabetes, hypertension, hypercholesterolemia, peripheral neuropathy, overactive bladder, right below-knee amputation, history of IBS. decub ulcer - Plan Plan: PLAN: Continue the patient on ADA diet and insulin sliding scale. Monitor for any signs of fluid overload. Continue with adequate skin care. We will review the patient's medication. We will make some adjustment. wound care Nutritional Asmnt/Malnutr-PDOC - Dietary Evaluation Malnutrition Findings (Please click <Entered> for more info): Nutritional Asmnt/Malnutrition Start: 02/13/19 14: 00 Text: Status: Complete Freq: Protocol: Document 02/13/19 14:01 FEDERICA (Rec: 02/13/19 14:06 FEDERICA [email or web address]) Nutritional Asmnt/Malnutrition Patient General Information Nutritional Screening Moderate Risk Diagnosis Psychosis Pertinent Medical Hx/Surgical Hx Morbid obesity, renal insufficiency, DM, HTN, Peripheral neuropathy, RT below-knee amputation, overactive bladder, status post gallbladder surgery, RT breast lumpectomy, T and A Subjective Information Pt was downgraded from moderate to low risk d/t well tolerance to meal/diet order and meeting nutritional needs. Pt is a 58-year-old female from nursing facility admitted on 02/09 d/t psychosis. Per Meal/Nutrition Activity Record , Pt PO intake 100% meals since admission. HT: 56 WT: 316 LB (143.64 kg) ADJ BW: 93.04 kg BMI: 51.0 (Obese III) GI: WNL, Soft, Non-Tender, Round BM: 02/12 x1 I/O: 1800/Not Noted Skin: WNL, Intact Manish: 15 Diet Order: CCHO, VINNY Estimated Energy Needs: (Obese III, ADJ BW) 5914-4816 kcals (20-25 kcals/ kg) 74-84 g Pro (0.8-0.9g/kg) 2959-1037 ml (25-30 ml/kg) Pt is eating 100% of meals per Meal/Nutrition Activity Record. Dietary is currently providing an estimated 2098 kcals and 120 gm Pro to meet 100% kcal and 100+% Pro needs. Current Diet Order/ Nutrition Support CCHO, VINNY Pertinent Medications Dulcolax (PRN), Colace, INS-SS , Slow-Mag, MOM (PRN), Klor- Con Pertinent Labs 02/13: POC Glucose (last 24 hours) 167, 219, 243, 238, 189 , 198 Nutritional Hx/Data Height 1.68 m Height (Calculated Centimeters) 167.6 Current Weight (lbs) 143.335 kg Weight (Calculated Kilograms) 143.3 Weight (Calculated Grams) 535371.2 [place] Body Weight 59.3 kg % [place] Body Weight 242 Body Mass Index (BMI) 51.0 Weight Status Morbidly Obese GI Symptoms GI Symptoms None Last BM 02/12 x1 Skin Integrity/Comment: WNL, Intact Manish: 15 Current %PO Good (75-100%) Estimated Nutritional Goals BEE in Kcals: Adj wt of IBW Calories/Kcals/Kg 20-25 Kcals Calculated 8236-7460 Protein: Adj wt of IBW Protein g/k.8-0.9g Protein Calculated 74-84 Fluid: ml 7361-1508 ml (25-30 ml/kg) Nutritional Problem 2. Problem Problem Obesity Etiology related to possible excessive energy intake Signs/Symptoms: aeb BMI 51.0, 242% IBW 1. Problem Problem Altered nutrition related labs Etiology r/t endocrine dysfunction and Hx of DM Signs/Symptoms: aeb POC Glucose (last 24 hours ) 167, 219, 243, 238, 189, 198 on 02/13 Intervention/Recommendation Comments 1.Continue with CCHO, VINNY diet as ordered. 2. Continue with anti- hyperglycemic medications for glucose control per MD order. Expected Outcomes/Goals Expected Outcomes/Goals 1.PO intake to continue to meet 75% of nutritional needs. 2.Monitor PO intake, wt, skin integrity, and nutrition related labs to trend WNL. 3.F/U as low risk in 7 days,
[2019-02-17] MEDS: Hydrocodone/APAP 5mg/325mg Tab PO PRN ×2 (00:34→13:29)
--- NOTE | 2019-02-17 03:47 | Progress Notes ---
DATE: 02/16/2019 PSYCHIATRIC PROGRESS NOTE SUBJECTIVE: Staff was spoken to. The patient is interviewed. Mood is noted to be depressed. Affect is constricted. The patient is isolative and withdrawn. Coping skills are noted to be still poor. The patient has been having difficult time to cope with the stress. No side effects to the medications are noted. In view of the depression, it is decided to increase the dose of the Lexapro to 10 mg and follow the patient up with supportive therapy. [facility]# [id number]
[2019-02-17] MEDS: INSULIN LISPRO SLIDING SCALE 100 UNITS/ML UNIT SUBQ SCH ×4 (06:42→20:45)
[2019-02-17] MEDS: Potassium Chloride 10 mEq ER Tab PO SCH (08:32)
[2019-02-17] MEDS: Magnesium Chloride EC 64mg Tab PO SCH ×2 (08:32→17:56)
[2019-02-17] MEDS: Polyvinyl Alcohol Ophth Soln 15 mL Bottle EACH EYE SCH ×3 (08:37→20:44)
[2019-02-17] MEDS: INSULIN 70/30 100 UNITS/ML SUBQ SCH ×2 (08:44→20:44)
[2019-02-17] MEDS ORDERED: Escitalopram Oxalate 5 mg Tab PO SCH (09:00)
--- NOTE | 2019-02-17 12:37 | Internal Medicine Prog Note ---
Internal Medicine Subjective - Subjective Patient seen and examined:: with staff, chart reviewed Patient is:: awake, verbal, interactive, in bed Per staff patient has:: no adverse event, no episodes of fall, poor appetite, tolerating meds Internal Medicine Objective - Results Result Diagrams: 02/09/19 20:30 02/09/19 20:30 Recent Labs: Laboratory Last Values WBC 8.3 Th/cmm (4.8-10.8) 02/09/19 20: RBC 4.57 Mil/cmm (3.80-5.10) 02/09/19 20: Hgb 13.5 gm/dL (12-16) 02/09/19 20: Hct 41.2 % (41.0-60) 02/09/19: MCV 90.1 fl (81-100) 02/09/19 20: MCH 29.6 pg (27.0-31.0) 02/09/19: MCHC Differential 32.8 pg (28.0-36.0) 02/09/19: RDW 12.7 % (11.5-20.0) 02/09/19 20: Plt Count 208 Th/cmm (150-400) 02/09/19 20: MPV 10.4 fl 02/09/19 20:30 Neutrophils % 76.9 % (40.0-80.0) 02/09/19 20:30 Lymphocytes % 16.1 % (20.0-50.0) L 02/09/19: Monocytes % 2.5 % (2.0-10.0) 02/09/19: Eosinophils % 4.5 % (0.0-5.0) 02/09/19 20: Basophils % 0.0 % (0.0-2.0) 02/09/19 20:30 Sodium 137 mEq/L (136-145) 02/09/19 20: Potassium 3.8 mEq/L (3.5-5.1) 02/09/19 20: Chloride 100 mEq/L (98-107) 02/09/19 20: Carbon Dioxide 27.8 mEq/L (21.0-31.0) 02/09/19 20: Anion Gap 13.0 (7.0-16.0) 02/09/19 20:30 BUN 40 mg/dL (7-25) H 02/09/19 20:30 Creatinine 1.3 mg/dL (0.6-1.2) H 02/09/19 20:30 Est GFR ( Amer) 53.7 ml/min (>90) 02/09/19 20:30 Est GFR (Non-Af Amer) 44.4 ml/min 02/09/19 20:30 BUN/Creatinine Ratio 30.8 02/09/19 20:30 Glucose 170 mg/dL (70-105) H 02/09/19 20:30 POC Glucose 187 MG/DL (70 - 105) H 02/16/19 09:14 Calcium 9.1 mg/dL (8.6-10.3) 02/09/19 20:30 Total Bilirubin 0.3 mg/dL (0.3-1.0) 02/09/19 20:30 AST 12 U/L (13-39) L 02/09/19 20:30 ALT 12 U/L (7-52) 02/09/19 20:30 Alkaline Phosphatase 85 U/L (34-104) 02/09/19 20:30 Total Protein 6.8 gm/dL (6.0-8.3) 02/09/19 20:30 Albumin 3.9 gm/dL (3.7-5.3) 02/09/19 20:30 Globulin 2.9 gm/dL 02/09/19 20:30 Albumin/Globulin Ratio 1.3 (1.0-1.8) 02/09/19 20:30 TSH 1.49 uIU/ml (0.34-5.60) 02/09/19 20:30 - Physical Exam Vitals and I&O: Vital Signs Temp 97.6 F 02/17/19 05:47 Pulse 70 02/17/19 08:32 Resp 19 02/17/19 05:47 BP 123/60 02/17/19 08:32 Pulse Ox 95 02/17/19 05:47 Intake & Output 02/16/19 02/17/19 02/17/19 18:59 06:59 18:59 Intake Total 480 Output Total 1 Balance 479 Intake: Oral 480 Output: Urine/Stool Mix 1 Other: # Voids 3 # Bowel Movements 0 Active Medications: Current Medications Acetaminophen/Hydrocodone Bitart ([place] 5mg/325mg) 1 tab PO Q6H PRN PRN Reason: Pain (Severe) Stop: 04/11/19 08:11 Last Admin: 02/17/19 00:34 Dose: 1 tab Artificial Tears (Artificial Tears Ophth Soln) 1 drop EACH EYE TID [facility] Stop: 04/11/19 08:59 Last Admin: 02/17/19 08:37 Dose: 1 drop Aspirin (Ecotrin) 81 mg PO DAILY [facility] Stop: 04/11/19 08:59 Last Admin: 02/17/19 08:36 Dose: 81 mg Bisacodyl (Dulcolax 10 Mg Supp) 10 mg RC DAILY PRN PRN Reason: Constipation Stop: 04/11/19 12:14 Docusate Sodium (Colace) 250 mg PO BID [facility] Stop: 04/11/19 08:59 Last Admin: 02/17/19 08:37 Dose: 250 mg Escitalopram Oxalate (Lexapro) 10 mg PO DAILY [facility]; Protocol Stop: 04/18/19 08:59 Gabapentin (Neurontin) 600 mg PO TID [facility] Stop: 04/13/19 08:59 Last Admin: 02/17/19 08:31 Dose: 600 mg Gemfibrozil (Lopid) 600 mg PO BIDAC [facility] Stop: 04/11/19 16:29 Last Admin: 02/17/19 06:42 Dose: 600 mg Hydroxyzine HCl (Atarax) 25 mg PO Q6HR PRN; Protocol PRN Reason: itchiness Stop: 04/11/19 08:11 Last Admin: 02/14/19 03:08 Dose: 25 mg Insulin Human Isoph/Insulin Regular (Humulin 70/30) 40 unit SUBQ HS [facility] Stop: 04/11/19 20:59 Last Admin: 02/16/19 20:34 Dose: 40 units Insulin Human Isoph/Insulin Regular (Humulin 70/30) 60 unit SUBQ QAM [facility] Stop: 04/11/19 08:59 Last Admin: 02/17/19 08:44 Dose: 60 units Insulin Human Lispro (Humalog Insulin Sliding Scale) 0 units SUBQ ACHS [facility]; Protocol Stop: 04/11/19 11:29 Last Admin: 02/17/19 06:42 Dose: Not Given Lorazepam (Ativan) 0.5 mg PO Q6HR PRN; Protocol PRN Reason: Anxiety Stop: 04/11/19 12:14 Last Admin: 02/17/19 05:21 Dose: 0.5 mg Magnesium Chloride (Slow-Mag) 1 ect PO BID [facility] Stop: 04/11/19 16:59 Last Admin: 02/17/19 08:32 Dose: 1 ect Magnesium Hydroxide (Milk Of Magnesia) 30 ml PO DAILY PRN PRN Reason: Constipation Stop: 04/11/19 12:14 Metoprolol Succinate (Toprol Xl) 25 mg PO DAILY [facility] Stop: 04/11/19 08:59 Last Admin: 02/17/19 08:32 Dose: 25 mg Nitroglycerin (Nitrostat) 0.4 mg SL Q6HR PRN PRN Reason: Chest Pain Stop: 04/11/19 08:11 Potassium Chloride (Klor-Con) 10 meq PO DAILY [facility] Stop: 04/11/19 08:59 Last Admin: 02/17/19 08:32 Dose: 10 meq Topiramate (Topamax) 25 mg PO BID [facility] Stop: 04/11/19 08:59 Last Admin: 02/17/19 08:36 Dose: 25 mg General: alert, obese HEENT: NC/AT, PERRLA Neck: Supple, No JVD Lungs: CTAB Cardiovascular: RRR, Normal S1, Normal S2, without murmur Abdomen: soft, globular, positive bowel sound Extremities: excoriation Neurological: no change - Procedures Procedures: Procedures Procedure Code Date EXCISION OR CORRECTION OF [place] 77.54 10/22/97 OTHER LOCAL DESTRUC SKIN 86.3 10/22/97 PART REMOVAL OF METATARSAL 12170 10/22/97 Internal Medicine Assmt/Plan - Assessment Assessment: ASSESSMENT AND PLAN: Morbid obesity, renal insufficiency, diabetes, hypertension, hypercholesterolemia, peripheral neuropathy, overactive bladder, right below-knee amputation, history of IBS. decub ulcer - Plan Plan: PLAN: Continue the patient on ADA diet and insulin sliding scale. Monitor for any signs of fluid overload. Continue with adequate skin care. We will review the patient's medication. We will make some adjustment. wound care Nutritional Asmnt/Malnutr-PDOC - Dietary Evaluation Malnutrition Findings (Please click <Entered> for more info): Nutritional Asmnt/Malnutrition Start: 02/13/19 14: 00 Text: Status: Complete Freq: Protocol: Document 02/13/19 14:01 FEDERICA (Rec: 02/13/19 14:06 FEDERICA [email or web address]) Nutritional Asmnt/Malnutrition Patient General Information Nutritional Screening Moderate Risk Diagnosis Psychosis Pertinent Medical Hx/Surgical Hx Morbid obesity, renal insufficiency, DM, HTN, Peripheral neuropathy, RT below-knee amputation, overactive bladder, status post gallbladder surgery, RT breast lumpectomy, T and A Subjective Information Pt was downgraded from moderate to low risk d/t well tolerance to meal/diet order and meeting nutritional needs. Pt is a 58-year-old female from nursing facility admitted on 02/09 d/t psychosis. Per Meal/Nutrition Activity Record , Pt PO intake 100% meals since admission. HT: 56 WT: 316 LB (143.64 kg) ADJ BW: 93.04 kg BMI: 51.0 (Obese III) GI: WNL, Soft, Non-Tender, Round BM: 02/12 x1 I/O: 1800/Not Noted Skin: WNL, Intact Manish: 15 Diet Order: CCHO, VINNY Estimated Energy Needs: (Obese III, ADJ BW) 5228-5112 kcals (20-25 kcals/ kg) 74-84 g Pro (0.8-0.9g/kg) 4847-3466 ml (25-30 ml/kg) Pt is eating 100% of meals per Meal/Nutrition Activity Record. Dietary is currently providing an estimated 2098 kcals and 120 gm Pro to meet 100% kcal and 100+% Pro needs. Current Diet Order/ Nutrition Support CCHO, VINNY Pertinent Medications Dulcolax (PRN), Colace, INS-SS , Slow-Mag, MOM (PRN), Klor- Con Pertinent Labs 02/13: POC Glucose (last 24 hours) 167, 219, 243, 238, 189 , 198 Nutritional Hx/Data Height 1.68 m Height (Calculated Centimeters) 167.6 Current Weight (lbs) 143.335 kg Weight (Calculated Kilograms) 143.3 Weight (Calculated Grams) 758662.2 [place] Body Weight 59.3 kg % [place] Body Weight 242 Body Mass Index (BMI) 51.0 Weight Status Morbidly Obese GI Symptoms GI Symptoms None Last BM 02/12 x1 Skin Integrity/Comment: WNL, Intact Manish: 15 Current %PO Good (75-100%) Estimated Nutritional Goals BEE in Kcals: Adj wt of IBW Calories/Kcals/Kg 20-25 Kcals Calculated 1385-1559 Protein: Adj wt of IBW Protein g/k.8-0.9g Protein Calculated 74-84 Fluid: ml 0397-9042 ml (25-30 ml/kg) Nutritional Problem 2. Problem Problem Obesity Etiology related to possible excessive energy intake Signs/Symptoms: aeb BMI 51.0, 242% IBW 1. Problem Problem Altered nutrition related labs Etiology r/t endocrine dysfunction and Hx of DM Signs/Symptoms: aeb POC Glucose (last 24 hours ) 167, 219, 243, 238, 189, 198 on 02/13 Intervention/Recommendation Comments 1.Continue with CCHO, VINNY diet as ordered. 2. Continue with anti- hyperglycemic medications for glucose control per MD order. Expected Outcomes/Goals Expected Outcomes/Goals 1.PO intake to continue to meet 75% of nutritional needs. 2.Monitor PO intake, wt, skin integrity, and nutrition related labs to trend WNL. 3.F/U as low risk in 7 days,
--- NOTE | 2019-02-18 05:49 | Progress Notes ---
DATE: 02/17/2019 SUBJECTIVE: Staff was spoken to. The patient is interviewed. Mood is noted to be anxious. The patient is stating that she is getting kind of frustrated for being here. States that she is not getting the help that she needs. Coping skills are noted to be very poor. Insight and judgment are noted to be improving. Impulse control seems to be fair. The patient is not presenting with any threats to harm self or others. The patient's sleep is noted to be poor. Appetite is noted to be improving. ASSESSMENT: The patient is still depressed. PLAN: To continue the patient with the supportive therapy and followup. JOB# [id number]
[2019-02-18] MEDS: Hydrocodone/APAP 5mg/325mg Tab PO PRN ×2 (06:37→17:04)
[2019-02-18] MEDS: INSULIN LISPRO SLIDING SCALE 100 UNITS/ML UNIT SUBQ SCH ×4 (06:47→20:11)
[2019-02-18] MEDS: Potassium Chloride 10 mEq ER Tab PO SCH (09:03)
[2019-02-18] MEDS: Magnesium Chloride EC 64mg Tab PO SCH ×2 (09:03→17:07)
[2019-02-18] MEDS: Polyvinyl Alcohol Ophth Soln 15 mL Bottle EACH EYE SCH ×3 (09:04→20:12)
[2019-02-18] MEDS: INSULIN 70/30 100 UNITS/ML SUBQ SCH ×2 (09:07→20:12)
--- NOTE | 2019-02-18 12:20 | Internal Medicine Prog Note ---
Internal Medicine Subjective - Subjective Patient seen and examined:: with staff, chart reviewed Patient is:: awake, verbal, interactive, in bed Per staff patient has:: no adverse event, no episodes of fall, poor appetite, tolerating meds Internal Medicine Objective - Results Result Diagrams: 02/09/19 20:30 02/09/19 20:30 Recent Labs: Laboratory Last Values WBC 8.3 Th/cmm (4.8-10.8) 02/09/19 20: RBC 4.57 Mil/cmm (3.80-5.10) 02/09/19 20: Hgb 13.5 gm/dL (12-16) 02/09/19 20: Hct 41.2 % (41.0-60) 02/09/19: MCV 90.1 fl (81-100) 02/09/19 20: MCH 29.6 pg (27.0-31.0) 02/09/19: MCHC Differential 32.8 pg (28.0-36.0) 02/09/19: RDW 12.7 % (11.5-20.0) 02/09/19 20: Plt Count 208 Th/cmm (150-400) 02/09/19 20: MPV 10.4 fl 02/09/19 20:30 Neutrophils % 76.9 % (40.0-80.0) 02/09/19 20:30 Lymphocytes % 16.1 % (20.0-50.0) L 02/09/19: Monocytes % 2.5 % (2.0-10.0) 02/09/19: Eosinophils % 4.5 % (0.0-5.0) 02/09/19 20: Basophils % 0.0 % (0.0-2.0) 02/09/19 20:30 Sodium 137 mEq/L (136-145) 02/09/19 20: Potassium 3.8 mEq/L (3.5-5.1) 02/09/19 20: Chloride 100 mEq/L (98-107) 02/09/19 20: Carbon Dioxide 27.8 mEq/L (21.0-31.0) 02/09/19 20: Anion Gap 13.0 (7.0-16.0) 02/09/19 20:30 BUN 40 mg/dL (7-25) H 02/09/19 20:30 Creatinine 1.3 mg/dL (0.6-1.2) H 02/09/19 20:30 Est GFR ( Amer) 53.7 ml/min (>90) 02/09/19 20:30 Est GFR (Non-Af Amer) 44.4 ml/min 02/09/19 20:30 BUN/Creatinine Ratio 30.8 02/09/19 20:30 Glucose 170 mg/dL (70-105) H 02/09/19 20:30 POC Glucose 187 MG/DL (70 - 105) H 02/16/19 09:14 Calcium 9.1 mg/dL (8.6-10.3) 02/09/19 20:30 Total Bilirubin 0.3 mg/dL (0.3-1.0) 02/09/19 20:30 AST 12 U/L (13-39) L 02/09/19 20:30 ALT 12 U/L (7-52) 02/09/19 20:30 Alkaline Phosphatase 85 U/L (34-104) 02/09/19 20:30 Total Protein 6.8 gm/dL (6.0-8.3) 02/09/19 20:30 Albumin 3.9 gm/dL (3.7-5.3) 02/09/19 20:30 Globulin 2.9 gm/dL 02/09/19 20:30 Albumin/Globulin Ratio 1.3 (1.0-1.8) 02/09/19 20:30 TSH 1.49 uIU/ml (0.34-5.60) 02/09/19 20:30 - Physical Exam Vitals and I&O: Vital Signs Temp 97.8 F 02/18/19 06:34 Pulse 70 02/18/19 09:02 Resp 18 02/18/19 06:34 BP 107/54 02/18/19 09:02 Pulse Ox 94 02/18/19 06:34 Intake & Output 02/17/19 02/18/19 02/18/19 18:59 06:59 18:59 Intake Total 900 120 Balance 900 120 Intake: Oral 900 120 Other: # Voids 4 3 # Bowel Movements 1 1 Active Medications: Current Medications Acetaminophen/Hydrocodone Bitart ([place] 5mg/325mg) 1 tab PO Q6H PRN PRN Reason: Pain (Severe) Stop: 04/11/19 08:11 Last Admin: 02/18/19 06:37 Dose: 1 tab Artificial Tears (Artificial Tears Ophth Soln) 1 drop EACH EYE TID [facility] Stop: 04/11/19 08:59 Last Admin: 02/18/19 09:04 Dose: 1 drop Aspirin (Ecotrin) 81 mg PO DAILY [facility] Stop: 04/11/19 08:59 Last Admin: 02/18/19 09:02 Dose: 81 mg Bisacodyl (Dulcolax 10 Mg Supp) 10 mg RC DAILY PRN PRN Reason: Constipation Stop: 04/11/19 12:14 Docusate Sodium (Colace) 250 mg PO BID [facility] Stop: 04/11/19 08:59 Last Admin: 02/18/19 09:02 Dose: 250 mg Escitalopram Oxalate (Lexapro) 10 mg PO DAILY [facility]; Protocol Stop: 04/18/19 08:59 Last Admin: 02/18/19 09:02 Dose: 10 mg Gabapentin (Neurontin) 600 mg PO TID [facility] Stop: 04/13/19 08:59 Last Admin: 02/18/19 09:02 Dose: 600 mg Gemfibrozil (Lopid) 600 mg PO BIDAC [facility] Stop: 04/11/19 16:29 Last Admin: 02/18/19 06:46 Dose: 600 mg Hydroxyzine HCl (Atarax) 25 mg PO Q6HR PRN; Protocol PRN Reason: itchiness Stop: 04/11/19 08:11 Last Admin: 02/14/19 03:08 Dose: 25 mg Insulin Human Isoph/Insulin Regular (Humulin 70/30) 40 unit SUBQ HS [facility] Stop: 04/11/19 20:59 Last Admin: 02/17/19 20:44 Dose: 40 units Insulin Human Isoph/Insulin Regular (Humulin 70/30) 60 unit SUBQ QAM [facility] Stop: 04/11/19 08:59 Last Admin: 02/18/19 09:07 Dose: 60 units Insulin Human Lispro (Humalog Insulin Sliding Scale) 0 units SUBQ ACHS [facility]; Protocol Stop: 04/11/19 11:29 Last Admin: 02/18/19 06:47 Dose: Not Given Lorazepam (Ativan) 0.5 mg PO Q6HR PRN; Protocol PRN Reason: Anxiety Stop: 04/11/19 12:14 Last Admin: 02/17/19 05:21 Dose: 0.5 mg Magnesium Chloride (Slow-Mag) 1 ect PO BID [facility] Stop: 04/11/19 16:59 Last Admin: 02/18/19 09:03 Dose: 1 ect Magnesium Hydroxide (Milk Of Magnesia) 30 ml PO DAILY PRN PRN Reason: Constipation Stop: 04/11/19 12:14 Metoprolol Succinate (Toprol Xl) 25 mg PO DAILY [facility] Stop: 04/11/19 08:59 Last Admin: 02/18/19 09:02 Dose: 25 mg Nitroglycerin (Nitrostat) 0.4 mg SL Q6HR PRN PRN Reason: Chest Pain Stop: 04/11/19 08:11 Potassium Chloride (Klor-Con) 10 meq PO DAILY [facility] Stop: 04/11/19 08:59 Last Admin: 02/18/19 09:03 Dose: 10 meq Topiramate (Topamax) 25 mg PO BID [facility] Stop: 04/11/19 08:59 Last Admin: 02/18/19 09:04 Dose: 25 mg General: alert, obese HEENT: NC/AT, PERRLA Neck: Supple, No JVD Lungs: CTAB Cardiovascular: RRR, Normal S1, Normal S2, without murmur Abdomen: soft, globular, positive bowel sound Extremities: excoriation Neurological: no change - Procedures Procedures: Procedures Procedure Code Date EXCISION OR CORRECTION OF B[place]ION[place] 77.54 10/22/97 OTHER LOCAL DESTRUC SKIN 86.3 10/22/97 PART REMOVAL OF METATARSAL 44246 10/22/97 Internal Medicine Assmt/Plan - Assessment Assessment: ASSESSMENT AND PLAN: Morbid obesity, renal insufficiency, diabetes, hypertension, hypercholesterolemia, peripheral neuropathy, overactive bladder, right below-knee amputation, history of IBS. decub ulcer - Plan Plan: PLAN: Continue the patient on ADA diet and insulin sliding scale. Monitor for any signs of fluid overload. Continue with adequate skin care. We will review the patient's medication. We will make some adjustment. wound care Nutritional Asmnt/Malnutr-PDOC - Dietary Evaluation Malnutrition Findings (Please click <Entered> for more info): Nutritional Asmnt/Malnutrition Start: 02/13/19 14: 00 Text: Status: Complete Freq: Protocol: Document 02/13/19 14:01 FEDERICA (Rec: 02/13/19 14:06 FEDERICA [email or web address]) Nutritional Asmnt/Malnutrition Patient General Information Nutritional Screening Moderate Risk Diagnosis Psychosis Pertinent Medical Hx/Surgical Hx Morbid obesity, renal insufficiency, DM, HTN, Peripheral neuropathy, RT below-knee amputation, overactive bladder, status post gallbladder surgery, RT breast lumpectomy, T and A Subjective Information Pt was downgraded from moderate to low risk d/t well tolerance to meal/diet order and meeting nutritional needs. Pt is a 58-year-old female from nursing facility admitted on 02/09 d/t psychosis. Per Meal/Nutrition Activity Record , Pt PO intake 100% meals since admission. HT: 56 WT: 316 LB (143.64 kg) ADJ BW: 93.04 kg BMI: 51.0 (Obese III) GI: WNL, Soft, Non-Tender, Round BM: 02/12 x1 I/O: 1800/Not Noted Skin: WNL, Intact Manish: 15 Diet Order: CCHO, VINNY Estimated Energy Needs: (Obese III, ADJ BW) 9647-4273 kcals (20-25 kcals/ kg) 74-84 g Pro (0.8-0.9g/kg) 8185-3083 ml (25-30 ml/kg) Pt is eating 100% of meals per Meal/Nutrition Activity Record. Dietary is currently providing an estimated 2098 kcals and 120 gm Pro to meet 100% kcal and 100+% Pro needs. Current Diet Order/ Nutrition Support CCHO, VINNY Pertinent Medications Dulcolax (PRN), Colace, INS-SS , Slow-Mag, MOM (PRN), Klor- Con Pertinent Labs 02/13: POC Glucose (last 24 hours) 167, 219, 243, 238, 189 , 198 Nutritional Hx/Data Height 1.68 m Height (Calculated Centimeters) 167.6 Current Weight (lbs) 143.335 kg Weight (Calculated Kilograms) 143.3 Weight (Calculated Grams) 080593.2 [place] Body Weight 59.3 kg % [place] Body Weight 242 Body Mass Index (BMI) 51.0 Weight Status Morbidly Obese GI Symptoms GI Symptoms None Last BM 02/12 x1 Skin Integrity/Comment: WNL, Intact Manish: 15 Current %PO Good (75-100%) Estimated Nutritional Goals BEE in Kcals: Adj wt of IBW Calories/Kcals/Kg 20-25 Kcals Calculated 7940-9043 Protein: Adj wt of IBW Protein g/k.8-0.9g Protein Calculated 74-84 Fluid: ml 5891-2208 ml (25-30 ml/kg) Nutritional Problem 2. Problem Problem Obesity Etiology related to possible excessive energy intake Signs/Symptoms: aeb BMI 51.0, 242% IBW 1. Problem Problem Altered nutrition related labs Etiology r/t endocrine dysfunction and Hx of DM Signs/Symptoms: aeb POC Glucose (last 24 hours ) 167, 219, 243, 238, 189, 198 on 02/13 Intervention/Recommendation Comments 1.Continue with CCHO, VINNY diet as ordered. 2. Continue with anti- hyperglycemic medications for glucose control per MD order. Expected Outcomes/Goals Expected Outcomes/Goals 1.PO intake to continue to meet 75% of nutritional needs. 2.Monitor PO intake, wt, skin integrity, and nutrition related labs to trend WNL. 3.F/U as low risk in 7 days,
--- NOTE | 2019-02-18 22:46 | Progress Notes ---
DATE: 02/18/2019 PSYCHIATRIC PROGRESS NOTE SUBJECTIVE: Staff was spoken to. The patient is interviewed. Mood is noted to be anxious. The patient's insight and judgment are noted to be still impaired. Impulse control is noted to be poor. The patient is feeling frustrated that no one is helping her. The patient's coping skills at this time are noted to be very poor. Insight and judgment noted to be improving. No side effects to the medications are noted. The patient is not presenting with any psychotic symptoms. Coping skills, however, are noted to be poor. ASSESSMENT: The patient is depressed. PLAN: To continue the patient with the supportive therapy. I encouraged the patient to verbalize the concerns rather than to act out. [facility]# [id number]
[2019-02-19] MEDS: INSULIN LISPRO SLIDING SCALE 100 UNITS/ML UNIT SUBQ SCH ×2 (06:38→12:19)
[2019-02-19] MEDS: Potassium Chloride 10 mEq ER Tab PO SCH (09:45)
[2019-02-19] MEDS: Magnesium Chloride EC 64mg Tab PO SCH (09:45)
[2019-02-19] MEDS: INSULIN 70/30 100 UNITS/ML SUBQ SCH (09:46)
[2019-02-19] MEDS: Polyvinyl Alcohol Ophth Soln 15 mL Bottle EACH EYE SCH (10:06)
--- NOTE | 2019-02-19 12:26 | Internal Medicine Prog Note ---
Internal Medicine Subjective - Subjective Patient seen and examined:: with staff, chart reviewed Patient is:: awake, verbal, interactive, in bed Per staff patient has:: no adverse event, no episodes of fall, poor appetite, tolerating meds Internal Medicine Objective - Results Result Diagrams: 02/09/19 20:30 02/09/19 20:30 Recent Labs: Laboratory Last Values WBC 8.3 Th/cmm (4.8-10.8) 02/09/19 20: RBC 4.57 Mil/cmm (3.80-5.10) 02/09/19 20: Hgb 13.5 gm/dL (12-16) 02/09/19 20: Hct 41.2 % (41.0-60) 02/09/19: MCV 90.1 fl (81-100) 02/09/19 20: MCH 29.6 pg (27.0-31.0) 02/09/19: MCHC Differential 32.8 pg (28.0-36.0) 02/09/19: RDW 12.7 % (11.5-20.0) 02/09/19 20: Plt Count 208 Th/cmm (150-400) 02/09/19 20: MPV 10.4 fl 02/09/19 20:30 Neutrophils % 76.9 % (40.0-80.0) 02/09/19 20:30 Lymphocytes % 16.1 % (20.0-50.0) L 02/09/19: Monocytes % 2.5 % (2.0-10.0) 02/09/19: Eosinophils % 4.5 % (0.0-5.0) 02/09/19 20: Basophils % 0.0 % (0.0-2.0) 02/09/19 20:30 Sodium 137 mEq/L (136-145) 02/09/19 20: Potassium 3.8 mEq/L (3.5-5.1) 02/09/19 20: Chloride 100 mEq/L (98-107) 02/09/19 20: Carbon Dioxide 27.8 mEq/L (21.0-31.0) 02/09/19 20: Anion Gap 13.0 (7.0-16.0) 02/09/19 20:30 BUN 40 mg/dL (7-25) H 02/09/19 20:30 Creatinine 1.3 mg/dL (0.6-1.2) H 02/09/19 20:30 Est GFR ( Amer) 53.7 ml/min (>90) 02/09/19 20:30 Est GFR (Non-Af Amer) 44.4 ml/min 02/09/19 20:30 BUN/Creatinine Ratio 30.8 02/09/19 20:30 Glucose 170 mg/dL (70-105) H 02/09/19 20:30 POC Glucose 125 MG/DL (70 - 105) H 02/18/19 16:48 Calcium 9.1 mg/dL (8.6-10.3) 02/09/19 20:30 Total Bilirubin 0.3 mg/dL (0.3-1.0) 02/09/19 20:30 AST 12 U/L (13-39) L 02/09/19 20:30 ALT 12 U/L (7-52) 02/09/19 20:30 Alkaline Phosphatase 85 U/L (34-104) 02/09/19 20:30 Total Protein 6.8 gm/dL (6.0-8.3) 02/09/19 20:30 Albumin 3.9 gm/dL (3.7-5.3) 02/09/19 20:30 Globulin 2.9 gm/dL 02/09/19 20:30 Albumin/Globulin Ratio 1.3 (1.0-1.8) 02/09/19 20:30 TSH 1.49 uIU/ml (0.34-5.60) 02/09/19 20:30 - Physical Exam Vitals and I&O: Vital Signs Temp 97.7 F 02/19/19 06:39 Pulse 62 02/19/19 09:44 Resp 18 02/19/19 06:39 BP 113/70 02/19/19 09:44 Pulse Ox 96 02/19/19 06:39 Intake & Output 02/18/19 02/19/19 02/19/19 18:59 06:59 18:59 Intake Total 1200 120 Balance 1200 120 Intake: Oral 1200 120 Other: # Voids 3 # Bowel Movements 1 Active Medications: Current Medications Acetaminophen/Hydrocodone Bitart ([place] 5mg/325mg) 1 tab PO Q6H PRN PRN Reason: Pain (Severe) Stop: 04/11/19 08:11 Last Admin: 02/18/19 17:04 Dose: 1 tab Artificial Tears (Artificial Tears Ophth Soln) 1 drop EACH EYE TID [facility] Stop: 04/11/19 08:59 Last Admin: 02/19/19 10:06 Dose: 1 drop Aspirin (Ecotrin) 81 mg PO DAILY [facility] Stop: 04/11/19 08:59 Last Admin: 02/19/19 09:45 Dose: 81 mg Bisacodyl (Dulcolax 10 Mg Supp) 10 mg RC DAILY PRN PRN Reason: Constipation Stop: 04/11/19 12:14 Docusate Sodium (Colace) 250 mg PO BID [facility] Stop: 04/11/19 08:59 Last Admin: 02/19/19 09:45 Dose: 250 mg Escitalopram Oxalate (Lexapro) 10 mg PO DAILY [facility]; Protocol Stop: 04/18/19 08:59 Last Admin: 02/19/19 09:45 Dose: 10 mg Gabapentin (Neurontin) 600 mg PO TID [facility] Stop: 04/13/19 08:59 Last Admin: 02/19/19 09:45 Dose: 600 mg Gemfibrozil (Lopid) 600 mg PO BIDAC [facility] Stop: 04/11/19 16:29 Last Admin: 02/19/19 07:00 Dose: 600 mg Hydroxyzine HCl (Atarax) 25 mg PO Q6HR PRN; Protocol PRN Reason: itchiness Stop: 04/11/19 08:11 Last Admin: 02/14/19 03:08 Dose: 25 mg Insulin Human Isoph/Insulin Regular (Humulin 70/30) 40 unit SUBQ HS [facility] Stop: 04/11/19 20:59 Last Admin: 02/18/19 20:12 Dose: 40 units Insulin Human Isoph/Insulin Regular (Humulin 70/30) 60 unit SUBQ QAM [facility] Stop: 04/11/19 08:59 Last Admin: 02/19/19 09:46 Dose: 60 units Insulin Human Lispro (Humalog Insulin Sliding Scale) 0 units SUBQ ACHS [facility]; Protocol Stop: 04/11/19 11:29 Last Admin: 02/19/19 12:19 Dose: Not Given Lorazepam (Ativan) 0.5 mg PO Q6HR PRN; Protocol PRN Reason: Anxiety Stop: 04/11/19 12:14 Last Admin: 02/18/19 17:06 Dose: 0.5 mg Magnesium Chloride (Slow-Mag) 1 ect PO BID [facility] Stop: 04/11/19 16:59 Last Admin: 02/19/19 09:45 Dose: 1 ect Magnesium Hydroxide (Milk Of Magnesia) 30 ml PO DAILY PRN PRN Reason: Constipation Stop: 04/11/19 12:14 Metoprolol Succinate (Toprol Xl) 25 mg PO DAILY [facility] Stop: 04/11/19 08:59 Last Admin: 02/19/19 09:44 Dose: 25 mg Nitroglycerin (Nitrostat) 0.4 mg SL Q6HR PRN PRN Reason: Chest Pain Stop: 04/11/19 08:11 Potassium Chloride (Klor-Con) 10 meq PO DAILY [facility] Stop: 04/11/19 08:59 Last Admin: 02/19/19 09:45 Dose: 10 meq Topiramate (Topamax) 25 mg PO BID [facility] Stop: 04/11/19 08:59 Last Admin: 02/19/19 09:44 Dose: 25 mg General: alert, obese HEENT: NC/AT, PERRLA Neck: Supple, No JVD Lungs: CTAB Cardiovascular: RRR, Normal S1, Normal S2, without murmur Abdomen: soft, globular, positive bowel sound Extremities: excoriation Neurological: no change - Procedures Procedures: Procedures Procedure Code Date EXCISION OR CORRECTION OF [place] 77.54 10/22/97 OTHER LOCAL DESTRUC SKIN 86.3 10/22/97 PART REMOVAL OF METATARSAL 20393 10/22/97 Internal Medicine Assmt/Plan - Assessment Assessment: ASSESSMENT AND PLAN: Morbid obesity, renal insufficiency, diabetes, hypertension, hypercholesterolemia, peripheral neuropathy, overactive bladder, right below-knee amputation, history of IBS. decub ulcer - Plan Plan: PLAN: Continue the patient on ADA diet and insulin sliding scale. Monitor for any signs of fluid overload. Continue with adequate skin care. We will review the patient's medication. We will make some adjustment. wound care Nutritional Asmnt/Malnutr-PDOC - Dietary Evaluation Malnutrition Findings (Please click <Entered> for more info): Nutritional Asmnt/Malnutrition Start: 02/13/19 14: 00 Text: Status: Complete Freq: Protocol: Document 02/13/19 14:01 FEDERICA (Rec: 02/13/19 14:06 FEDERICA [email or web address]) Nutritional Asmnt/Malnutrition Patient General Information Nutritional Screening Moderate Risk Diagnosis Psychosis Pertinent Medical Hx/Surgical Hx Morbid obesity, renal insufficiency, DM, HTN, Peripheral neuropathy, RT below-knee amputation, overactive bladder, status post gallbladder surgery, RT breast lumpectomy, T and A Subjective Information Pt was downgraded from moderate to low risk d/t well tolerance to meal/diet order and meeting nutritional needs. Pt is a 58-year-old female from nursing facility admitted on 02/09 d/t psychosis. Per Meal/Nutrition Activity Record , Pt PO intake 100% meals since admission. HT: 56 WT: 316 LB (143.64 kg) ADJ BW: 93.04 kg BMI: 51.0 (Obese III) GI: WNL, Soft, Non-Tender, Round BM: 02/12 x1 I/O: 1800/Not Noted Skin: WNL, Intact Manish: 15 Diet Order: CCHO, VINNY Estimated Energy Needs: (Obese III, ADJ BW) 0103-0754 kcals (20-25 kcals/ kg) 74-84 g Pro (0.8-0.9g/kg) 6258-1607 ml (25-30 ml/kg) Pt is eating 100% of meals per Meal/Nutrition Activity Record. Dietary is currently providing an estimated 2098 kcals and 120 gm Pro to meet 100% kcal and 100+% Pro needs. Current Diet Order/ Nutrition Support CCHO, VINNY Pertinent Medications Dulcolax (PRN), Colace, INS-SS , Slow-Mag, MOM (PRN), Klor- Con Pertinent Labs 02/13: POC Glucose (last 24 hours) 167, 219, 243, 238, 189 , 198 Nutritional Hx/Data Height 1.68 m Height (Calculated Centimeters) 167.6 Current Weight (lbs) 143.335 kg Weight (Calculated Kilograms) 143.3 Weight (Calculated Grams) 869694.2 [place] Body Weight 59.3 kg % [place] Body Weight 242 Body Mass Index (BMI) 51.0 Weight Status Morbidly Obese GI Symptoms GI Symptoms None Last BM 8/15 x1 Skin Integrity/Comment: WNL, Intact Manish: 15 Current %PO Good (75-100%) Estimated Nutritional Goals BEE in Kcals: Adj wt of IBW Calories/Kcals/Kg 20-25 Kcals Calculated 4005-2569 Protein: Adj wt of IBW Protein g/k.8-0.9g Protein Calculated 74-84 Fluid: ml 5675-0118 ml (25-30 ml/kg) Nutritional Problem 2. Problem Problem Obesity Etiology related to possible excessive energy intake Signs/Symptoms: aeb BMI 51.0, 242% IBW 1. Problem Problem Altered nutrition related labs Etiology r/t endocrine dysfunction and Hx of DM Signs/Symptoms: aeb POC Glucose (last 24 hours ) 167, 219, 243, 238, 189, 198 on 02/13 Intervention/Recommendation Comments 1.Continue with CCHO, VINNY diet as ordered. 2. Continue with anti- hyperglycemic medications for glucose control per MD order. Expected Outcomes/Goals Expected Outcomes/Goals 1.PO intake to continue to meet 75% of nutritional needs. 2.Monitor PO intake, wt, skin integrity, and nutrition related labs to trend WNL. 3.F/U as low risk in 7 days,
--- NOTE | 2019-02-19 14:24 | Progress Notes ---
DATE: 02/19/2019 SUBJECTIVE: Staff was spoken to. The patient is interviewed. Mood is noted to be anxious. Affect is appropriate. The patient is not suicidal or homicidal. Insight and judgment are noted to be fair. No side effects to the medications are noted. The patient has been able to verbalize the concerns rather than to act out. ASSESSMENT: The patient is stabilizing. PLAN: To discharge the patient today for followup on outpatient basis. [facility]# [id number]
== END 2019-02-19 13:15 | DRG 885 ==
LOC: ER 20:04 → GERO2 21:35 → GERO 02-16 16:06
PROVIDERS: ADMIT Psychiatry & Neurology Psychiatry; ATTEND Psychiatry & Neurology Psychiatry
DX: F32.2 Major depressive disorder, single episode, severe without psychotic features (principal); Z68.43 Body mass index [BMI] 50.0-59.9, adult; E78.00 Pure hypercholesterolemia, unspecified; K58.9 Irritable bowel syndrome, unspecified; I25.10 Atherosclerotic heart disease of native coronary artery without angina pectoris; E78.5 Hyperlipidemia, unspecified; F03.90 Unspecified dementia, unspecified severity, without behavioral disturbance, psychotic disturbance, mood disturbance, and anxiety; E66.01 Morbid (severe) obesity due to excess calories; I10 Essential (primary) hypertension; E11.42 Type 2 diabetes mellitus with diabetic polyneuropathy; Z79.4 Long term (current) use of insulin; Z89.511 Acquired absence of right leg below knee; Z88.0 Allergy status to penicillin; Z88.8 Allergy status to other drugs, medicaments and biological substances; Z79.82 Long term (current) use of aspirin; Z79.899 Other long term (current) drug therapy
CPT/HCPCS: 36415-UA; 71045-TC; 7610; 80053-TC; 80061-TC; 82948-90; 83036-90; 84443-TC; 85025-TC; 93005; Z7610